=== PATIENT | male | born 1945 | race Caucasian/White ===

== ENCOUNTER 2020-12-07 15:49 | Inpatient (IN) ==
[2020-12-07] MEDS ORDERED: ONDANSETRON INJ 2 MG/ML 2 ML VIAL IV STA (16:23)
[2020-12-07] MEDS ORDERED: SODIUM CHLORIDE 0.9% 1000ML 1,000 ML IV SCH (16:30)
[2020-12-07 16:37] LABS: Appearance Urine Clear (Clear); Bacteria Urine Automated 1+ (Negative); Blood Urine Negative (Negative); Color Urine Orange; Epithelial Cell Urine Auto 0-5 /lpf (0-5); Glucose Urine UA Negative (Negative); Ketones Urine Trace (Negative); Leukocyte Esterase Urine Trace (Negative); Nitrite Urine Positive (Negative); Protein Urine Trace (Negative); RBC Urine Automated 0-4 /hpf (0-4); Specific Gravity Urine 1.021 (1.000-1.030); Urobilinogen Urine Negative (Negative); WBC Urine Automated >30 /hpf (0-5)
[2020-12-07 16:40] LABS: Bilirubin Urine 1+ (Negative)
[2020-12-07 16:43] LABS: INR 1.3 (0.9-1.1); Partial Thromboplastin Time 28.8 Seconds (21.0-31.0); Prothrombin Time 13.4 Seconds (9.0-12.0)
[2020-12-07 16:52] LABS: Alanine Aminotransferase 86 U/L (12-78); Albumin Level 2.5 gm/dl (3.4-5.0); Aspartate Aminotransferase 125 U/L (15-37); BUN Creatinine Ratio 16.1 (10-20); Blood Urea Nitrogen 19 mg/dl (7-18); Calcium 8.6 mg/dl (8.5-10.1); Carbon Dioxide 22 mmol/L (21-32); Chloride 102 mmol/L (98-107); Creatinine Clr Calc Pharmacy 64.9 ml/min; Est GFR (African American) 72.8; Est GFR (Non-African American) 62.8; Glucose 99 mg/dl (70-99); Magnesium 1.6 mg/dl (1.8-2.4); Sodium 135 mmol/L (136-145)
--- NOTE | 2020-12-07 16:56 | XRay Report ---
KUB CLINICAL HISTORY: Diarrhea. FINDINGS: 2 AP, portable, supine abdominal radiographs are obtained. No prior studies are available f or comparison at the time of dictation. There is a nonobstructed abdominal bowel gas pattern. No evid ence of intraperitoneal free air is seen on these supine views. There are no abnormal abdominal calci fications. Surgical clips are seen in the right upper quadrant. The skeletal structures are osteopeni c and appear intact. There is moderate lumbosacral spondylosis. IMPRESSION: Nonobstructed abdominal bowel gas pattern. Electronically signed by: Heron Guzman M.D. 12/07/2020 4:55 PM
--- NOTE | 2020-12-07 16:58 | Emergency Department Note ---
Impression & Plan Diarrhea, Weakness, Urinary tract infection, Hypomagnesemia, Thrombocytopenia, Abnormal ECG ED Provider Note NAME: VIK PARISI AGE: 75 SEX: M : 1945 ARRIVES VIA: Walk-In INFORMANT: Patient, ED PROVIDER(S): Blair Quinonez DO CHIEF COMPLAINT: Diarrhea HPI: The patient is a 75-year-old male who presented to the emergency department for an evaluation of nausea vomiting and diarrhea. The patient states his symptoms began over the course the last week. He does have a history of cancer and is being treated with chemotherapy. He is noticed multiple episodes of nausea vomiting and loose bowel movements over the course of the last few days. He has had a similar episode in the past with a "bowel infection". The patie nt's been trying to drink normally to keep himself well-hydrated but he is unable to keep up with the amount of diarrhea that he has been having. He denies having any fever. He has no cough. He denies having any exposure to COVID-19. The patient denies having any abdominal pain. He does have some cramping. He states the cramping is intermittent. He denies having any black or bloody bowel movements. He said no chest pain or difficulty breathing. He notices no fever. The patient is not been seen recently by his primary care physician for the symptoms. ROS: See above HPI for pertinent positives & negatives. A total of 10 systems reviewed and were otherwise negative. PAST MEDICAL HISTORY: See Below PAST SURGICAL HISTORY: See Below FAMILY HISTORY: See Below SOCIAL HISTORY: See Below HOME MEDICATIONS: See Below ALLERGIES: See Below VITALS: See Below PHYSICAL EXAMINATION: GENERAL: Patient is awake alert in no acute distress patient is resting comfortably and showing no signs of anxiety EYES: The conjunctivae are clear. The pupils are round and reactive. EARS, NOSE, MOUTH AND THROAT: The nose is without any evidence of any deformity. Mucous membranes are dry. NECK: The neck is nontender and supple. RESPIRATORY: Normal respiratory effort is noted there is no evidence of wheezing rhonchi or rales CARDIOVASCULAR: Regular rate and rhythm noted there no murmurs rubs or gallops normal S1 normal S2. GASTROINTESTINAL: The abdomen is soft. Abdomen is nontender. MUSCULOSKELETAL/EXTREMITIES: There is no evidence of gross deformity full range of motion is noted in the hips and shoulders. SKIN: The skin is warm and dry. Trace pedal edema was noted bilaterally. NEUROLOGIC: Patient is awake alert and oriented x 3. MEDICAL DECISION MAKING: The patient is a 75-year-old male who presented to the emergency department for an evaluation of diarrhea and generalized weakness. The patient has a history of hepatocellular carcinoma and is receiving chemotherapy. He presented feeling very dehydrated and weak. I discussed the patient's laboratory and radiographic studies with him. He was treated with IV fluids IV antibiotics for presumed urinary tract infection as well as IV magnesium replacement. I discussed the patient's condition with the [facility] hospitalist. They will evaluate the patient in the emergency department for further management and disposition. Given the patient's overall medical condition I do feel he may warrant inpatient management. He does have a history of pleural effusion. His oxygen saturation is low and I feel this likely is the cause. Triage Nursing notes reviewed. Prior medical records reviewed Vital Signs: reviewed and remarkable for hypoxia. Differential diagnosis: Gastroenteritis, food borne illness, infections, appendicitis, diverticulitis, inflammatory bowel disease, obstruction, GI bleed, biliary pathology, volvulus, as well as other pathologies. ER treatment provided: See below Diagnostics interpreted by me: ECG: EKG was obtained in the emergency department. My interpretation is normal sinus rhythm at 92 bpm. There is no ectopy. Apical and low lateral ST depressions with T wave abnormalities were noted. EKG changes are new compared to an EKG tracing from April 162019 which was obtained from the [employer] system. Cardiac Monitoring: An order was placed for continuous cardiac monitoring. The monitor shows a rate of 89 bpm with sinus rhythm. Laboratory studies: As stated above and show below. Imaging studies: See below Consultation(s): I discussed this case with Dr. Kamara who is on-call for [facility]. He will evaluate the patient in the emergency department for further management and disposition. Past Med/Surg History Medical History Hepatitis C Hepatocellular carcinoma Pleural effusion, right Social History Feels Safe at Home: Yes Home Meds Home Medications Medication Instructions Recorded Confirmed amlodipine 5 mg PO DIRECTED 12/07/20 12/07/20 cabozantinib [Cabometyx] 60 mg PO DIRECTED 12/07/20 12/07/20 diclofenac sodium 1 ea TOPICAL DIRECTED 12/07/20 12/07/20 hydroxyzine HCl 10 mg PO DIRECTED 12/07/20 12/07/20 ondansetron 8 mg PO DIRECTED 12/07/20 12/07/20 tamsulosin 0.4 mg PO DIRECTED 12/07/20 12/07/20 Results & Data (ED) Vital Signs Vital Signs - 24 hr 12/07/20 15:55 12/07/20 16:17 12/07/20 16:26 Temperature 36.8 C Temperature Source Oral Pulse Rate 112 H 103 H Pulse Rate from SpO2 Sensor 104 H Respiratory Rate 20 24 Respiratory Effort / Characteristics Non-Labored Respiratory Depth Normal Respiratory Pattern Regular Blood Pressure 113/78 132/90 Blood Pressure Mean 89 104 Blood Pressure Position Sitting Pulse Oximetry 93 93 98 Oxygen Delivery Method Room Air Room Air Room Air Sepsis Recent Fever Within 48 Hours No Sepsis New/Unexplained Change in Mental Status No Sepsis Action Taken by Nursing No Action Required 12/07/20 16:30 12/07/20 17:00 12/07/20 17:30 Temperature Temperature Source Pulse Rate 98 H 84 90 Pulse Rate from SpO2 Sensor 98 H 84 90 Respiratory Rate 19 16 17 Respiratory Effort / Characteristics Respiratory Depth Respiratory Pattern Blood Pressure 109/74 130/76 147/75 H Blood Pressure Mean 85 94 99 Blood Pressure Position Pulse Oximetry 93 92 91 Oxygen Delivery Method Room Air Room Air Sepsis Recent Fever Within 48 Hours Sepsis New/Unexplained Change in Mental Status Sepsis Action Taken by Nursing 12/07/20 17:31 12/07/20 18:00 12/07/20 18:01 Temperature Temperature Source Pulse Rate 89 81 83 Pulse Rate from SpO2 Sensor 89 81 82 Respiratory Rate 16 13 12 Respiratory Effort / Characteristics Respiratory Depth Respiratory Pattern Blood Pressure 138/74 Blood Pressure Mean 95 Blood Pressure Position Pulse Oximetry 91 90 Oxygen Delivery Method Sepsis Recent Fever Within 48 Hours Sepsis New/Unexplained Change in Mental Status Sepsis Action Taken by Nursing 12/07/20 18:30 12/07/20 18:31 12/07/20 19:00 Temperature Temperature Source Pulse Rate 95 H 95 H 87 Pulse Rate from SpO2 Sensor 96 H 95 H 87 Respiratory Rate 18 22 15 Respiratory Effort / Characteristics Respiratory Depth Respiratory Pattern Blood Pressure 140/92 136/80 Blood Pressure Mean 108 98 Blood Pressure Position Pulse Oximetry 93 93 90 Oxygen Delivery Method Sepsis Recent Fever Within 48 Hours Sepsis New/Unexplained Change in Mental Status Sepsis Action Taken by Nursing 12/07/20 19:01 Temperature Temperature Source Pulse Rate 87 Pulse Rate from SpO2 Sensor 87 Respiratory Rate 15 Respiratory Effort / Characteristics Respiratory Depth Respiratory Pattern Blood Pressure Blood Pressure Mean Blood Pressure Position Pulse Oximetry 91 Oxygen Delivery Method Sepsis Recent Fever Within 48 Hours Sepsis New/Unexplained Change in Mental Status Sepsis Action Taken by [facility] Medications Current Medication List: was personally reviewed by me Laboratory Data Attestation: I reviewed the patient's lab results. Result diagrams: 12/07/20 16:20 12/07/20 16:20 Lab Results 12/07/20 12/07/20 12/07/20 Range/Units 16:10 16:20 16:20 WBC 3.81 L (4.8-10.8) K/uL RBC 5.29 (4.7-6.1) M/uL Hgb 16.7 (14.0-18.0) g/dL Hct 46.5 (42-52) % MCV 87.9 (80-100) fL MCH 31.6 (25-34) pg MCHC 35.9 (32-36) g/dL RDW Std Deviation 57.8 H (36.4-46.3) fL RDW Coeff of Juan C 18.5 H (11.5-14.5) % Plt Count 68 L (130-400) K/uL MPV 10.7 H (7.4-10.4) fL Immature Gran % (Auto) 0.3 % Neut % (Auto) 46.2 % Lymph % (Auto) 33.9 % [place] % (Auto) 14.4 % Eos % (Auto) 4.7 % Baso % (Auto) 0.5 % Neut # (Auto) 1.76 (1.4-6.5) K/uL Lymph # (Auto) 1.29 (1.2-3.4) K/uL [place] # (Auto) 0.55 (0.11-0.59) K/uL Eos # (Auto) 0.18 (0-0.5) K/uL Baso # (Auto) 0.02 (0-0.2) K/uL Immature Gran # (Auto) 0.01 (0.00-0.02) K/uL Platelet Estimate Decreased L (Normal) PT 13.4 H (9.0-12.0) Seconds INR 1.3 H (0.9-1.1) APTT 28.8 (21.0-31.0) Seconds PTT Ratio 1.0 Sodium (136-145) mmol/L Potassium (3.5-5.1) mmol/L Chloride (98-107) mmol/L Carbon Dioxide (21-32) mmol/L Anion Gap (3-11) BUN (7-18) mg/dl Creatinine (0.6-1.4) mg/dl Est Cr Clr Drug Dosing ml/min Est GFR ( Amer) Est GFR (Non-Af Amer) BUN/Creatinine Ratio (10-20) Glucose (70-99) mg/dl Calcium (8.5-10.1) mg/dl Magnesium (1.8-2.4) mg/dl Total Bilirubin (0.2-1) mg/dl AST (15-37) U/L ALT (12-78) U/L Alkaline Phosphatase (45-117) U/L Troponin I (0-0.045) ng/ml Total Protein (6.4-8.2) gm/dl Albumin (3.4-5.0) gm/dl Globulin (2.5-4.0) gm/dl Albumin/Globulin Ratio (0.9-2) TSH (0.300-4.500) uIu/ml Free T4 (0.8-1.6) ng/dl Urine Color [place] Urine Appearance Clear (Clear) Urine pH 5.0 (4.5-7.5) Ur Specific [place] 1.021 (1.000-1.030) Urine Protein Trace H (Negative) Urine Glucose (UA) Negative (Negative) Urine Ketones Trace H (Negative) Urine Blood Negative (Negative) Urine Nitrite Positive A (Negative) Urine Bilirubin 1+ H (Negative) Urine Urobilinogen Negative (Negative) Ur Leukocyte Esterase Trace H (Negative) Urine WBC (Auto) >30 H (0-5) /hpf Urine RBC (Auto) 0-4 (0-4) /hpf U Hyaline Cast (Auto) 10-30 H (0-5) /lpf U Epithel Cells (Auto) 0-5 (0-5) /lpf Urine Bacteria (Auto) 1+ H (Negative) Urine Yeast Not Reportable COVID-19 Eval Order SARS-CoV-2 (PCR) (Negative) Influenza Type A (PCR) (Neg) Influenza Type B (PCR) (Neg) RSV (RT-PCR) (Neg) 12/07/20 12/07/20 12/07/20 Range/Units 16:20 18:32 18:32 WBC (4.8-10.8) K/uL RBC (4.7-6.1) M/uL Hgb (14.0-18.0) g/dL Hct (42-52) % MCV (80-100) fL MCH (25-34) pg MCHC (32-36) g/dL RDW Std Deviation (36.4-46.3) fL RDW Coeff of Juan C (11.5-14.5) % Plt Count (130-400) K/uL MPV (7.4-10.4) fL Immature Gran % (Auto) % Neut % (Auto) % Lymph % (Auto) % [place] % (Auto) % Eos % (Auto) % Baso % (Auto) % Neut # (Auto) (1.4-6.5) K/uL Lymph # (Auto) (1.2-3.4) K/uL [place] # (Auto) (0.11-0.59) K/uL Eos # (Auto) (0-0.5) K/uL Baso # (Auto) (0-0.2) K/uL Immature Gran # (Auto) (0.00-0.02) K/uL Platelet Estimate (Normal) PT (9.0-12.0) Seconds INR (0.9-1.1) APTT (21.0-31.0) Seconds PTT Ratio Sodium 135 L (136-145) mmol/L Potassium 4.0 (3.5-5.1) mmol/L Chloride 102 (98-107) mmol/L Carbon Dioxide 22 (21-32) mmol/L Anion Gap 10.0 (3-11) BUN 19 H (7-18) mg/dl Creatinine 1.15 (0.6-1.4) mg/dl Est Cr Clr Drug Dosing 64.9 ml/min Est GFR ( Amer) 72.8 Est GFR (Non-Af Amer) 62.8 BUN/Creatinine Ratio 16.1 (10-20) Glucose 99 (70-99) mg/dl Calcium 8.6 (8.5-10.1) mg/dl Magnesium 1.6 L (1.8-2.4) mg/dl Total Bilirubin 2.6 H (0.2-1) mg/dl AST 125 H (15-37) U/L ALT 86 H (12-78) U/L Alkaline Phosphatase 125 H (45-117) U/L Troponin I < 0.015 (0-0.045) ng/ml Total Protein 6.5 (6.4-8.2) gm/dl Albumin 2.5 L (3.4-5.0) gm/dl Globulin 4.0 (2.5-4.0) gm/dl Albumin/Globulin Ratio 0.6 L (0.9-2) TSH 0.057 L (0.300-4.500) uIu/ml Free T4 5.71 H (0.8-1.6) ng/dl Urine Color Urine Appearance (Clear) Urine pH (4.5-7.5) Ur Specific [place] (1.000-1.030) Urine Protein (Negative) Urine Glucose (UA) (Negative) Urine Ketones (Negative) Urine Blood (Negative) Urine Nitrite (Negative) Urine Bilirubin (Negative) Urine Urobilinogen (Negative) Ur Leukocyte Esterase (Negative) Urine WBC (Auto) (0-5) /hpf Urine RBC (Auto) (0-4) /hpf U Hyaline Cast (Auto) (0-5) /lpf U Epithel Cells (Auto) (0-5) /lpf Urine Bacteria (Auto) (Negative) Urine Yeast COVID-19 Eval Order [facility]Rsv at [facility] SARS-CoV-2 (PCR) NEGATIVE (Negative) Influenza Type A (PCR) Negative (Neg) Influenza Type B (PCR) Negative (Neg) RSV (RT-PCR) Negative (Neg) Administered Medications Discontinued Medications Sodium Chloride (Nss 1000ml) 1,000 mls @ 999 mls/hr IV .Q1H1M MARCE Stop: 12/07/20 17:30 Last Infusion: 12/07/20 17:39 Dose: 0 mls/hr Documented by: [id number] Admin: 12/07/20 16:28 Dose: 999 mls/hr Documented by: [id number] Magnesium Sulfate/Dextrose (Magnesium Sulfate / D5w) 1 gm in 100 mls @ 100 mls/hr IV Q1H MARCE Stop: 12/07/20 19:53 Last Admin: 12/07/20 19:25 Dose: 100 mls/hr Documented by: [id number] Infusion: 12/07/20 19:25 Dose: 100 mls/hr Documented by: [id number] Admin: 12/07/20 18:26 Dose: 100 mls/hr Documented by: [id number] Ceftriaxone Sodium (Rocephin) 1,000 mg in 50 mls @ 100 mls/hr IV NOW STA Stop: 12/07/20 18:23 Last Infusion: 12/07/20 19:32 Dose: 0 mls/hr Documented by: [id number] Admin: 12/07/20 18:26 Dose: 100 mls/hr Documented by: [id number] Ondansetron HCl (Ondansetron Inj 2 Mg/Ml 2 Ml Vial) 4 mg IV NOW STA Stop: 12/07/20 16:24 Last Admin: 12/07/20 16:35 Dose: 4 mg Documented by: [id number] Imaging Data Radiologist's Impression: Patient: VIK PARISI Admit Date: 12/07/20 MR#: [id number] Address1: [address] [place] [address] Acct ID:[id number] Address2: Date: 1945 [facility] Zip: [place] [address] Age: 75 Location: ED Sex: M Room/Bed: Att Phy: Diagnosis: VOMITING, DIARRHEA, DEHYDRATED, LIVER CANCER Mile Phy: PCP,NO Service Date: 12/07/20 [facility] Phy: Interpreting Phy: Heron Guzman MD Admit Phy: Ordering Phy: Blair Quinonez DO cc: ~ KYLE CLINICAL HISTORY: Diarrhea. FINDINGS: 2 AP, portable, supine abdominal radiographs are obtained. No prior studies are available for comparison at the time of dictation. There is a nonobstructed abdominal bowel gas pattern. No evidence of intraperitoneal free air is seen on these supine views. There are no abnormal abdominal calcifications. Surgical clips are seen in the right upper quadrant. The skeleta l structures are osteopenic and appear intact. There is moderate lumbosacral spondylosis. IMPRESSION: Nonobstructed abdominal bowel gas pattern. Electronically signed by: Heron Guzman M.D. 12/07/2020 4:55 PM Dictated: 12/07/201653 Transcribed: 12/07/201653 Patient: VIK PARISI Admit Date: 12/07/20 MR#: [id number] Address1: [place] [facility] Acct ID:[id number] Address2: Date: 1945 [facility] Zip: [place] [address] Age: 75 Location: ED Sex: M Room/Bed: Att Phy: Diagnosis: VOMITING, DIARRHEA, DEHYDRATED, LIVER CANCER Mile Phy: PCP,NO Service Date: 12/07/20 Fam Phy: Interpreting Phy: Heron Guzman MD Admit Phy: Ordering Phy: Blair Quinonez DO cc: ~ SINGLE VIEW CHEST CLINICAL HISTORY: Generalized weakness. Diarrhea. FINDINGS: An AP, portable, upright chest radiograph is obtained. No prior studies are available for comparison at the time of dictation. The cardiomediastinal silhouette is unremarkable. There is elevation of the right hemidiaphragm with right basilar consolidation and associated right-sided pleural effusion. The left lung appears clear. No pneumothorax is seen. The skeletal structures are osteopenic. There are healed left-sided rib fractures. IMPRESSION: 1. There is elevation of the right hemidiaphragm with right basilar consolidation and a right pleural effusion. Correlate clinically for pneumonia. 2. The left lung appears clear. ACT 112: Negative or not required by law. Electronically signed by: Heron Guzman M.D. 12/07/2020 4:57 PM Dictated: 12/07/201654 Transcribed: 12/07/201654 Blood Pressure Blood Pressure Findings: Normal blood pressure Discharge Plan Visit Data Chief Complaint: Illness Stated Complaint: VOMITING, DIARRHEA, DEHYDRATED, LIVER CANCER ED Provider: Blair Quinonez Discharge Problem: Diarrhea, Weakness, Urinary tract infection, Hypomagnesemia, Thrombocytopenia, Abnormal ECG Patient Disposition: Being Evaluated by Hospitalist Condition: Good Forms Stand Alone Forms: My [facility] Prescriptions Prescriptions: No Action amlodipine 5 mg tablet 5 mg PO DIRECTED RF: 0 ondansetron 8 mg tablet,disintegrating 8 mg PO DIRECTED RF: 0 tamsulosin 0.4 mg capsule 0.4 mg PO DIRECTED RF: 0 hydroxyzine HCl 10 mg tablet 10 mg PO DIRECTED RF: 0 diclofenac sodium 1 % gel 1 ea TOPICAL DIRECTED RF: 0 Cabometyx 60 mg tablet 60 mg PO DIRECTED RF: 0 Referrals Referrals: PCP,NO [Primary Care Provider] - Discharge Problem: Diarrhea Qualifiers: Diarrhea type: unspecified type Qualified Code(s): R19.7 - Diarrhea, unspecified Urinary tract infection Qualifiers: Urinary tract infection type: site unspecified Hematuria presence: without hematuria Qualified Code(s): N39.0 - Urinary tract infection, site not specified
--- NOTE | 2020-12-07 16:58 | XRay Report ---
SINGLE VIEW CHEST CLINICAL HISTORY: Generalized weakness. Diarrhea. FINDINGS: An AP, portable, upright chest radiograph is obtained. No prior studies are available for c omparison at the time of dictation. The cardiomediastinal silhouette is unremarkable. There is eleva tion of the right hemidiaphragm with right basilar consolidation and associated right-sided pleural e ffusion. The left lung appears clear. No pneumothorax is seen. The skeletal structures are osteopenic . There are healed left-sided rib fractures. IMPRESSION: 1. There is elevation of the right hemidiaphragm with right basilar consolidation and a right pleural effusion. Correlate clinically for pneumonia. 2. The left lung appears clear. ACT 112: Negative or not required by law. Electronically signed by: Heron Guzman M.D. 12/07/2020 4:57 PM
[2020-12-07 17:03] LABS: Albumin Globulin Ratio 0.6 (0.9-2); Alkaline Phosphatase 125 U/L (45-117); Bilirubin,Total 2.6 mg/dl (0.2-1); Thyroid Stimulating Hormone 0.057 uIu/ml (0.300-4.500); Total Protein 6.5 gm/dl (6.4-8.2); Troponin I < 0.015 ng/ml (0-0.045)
[2020-12-07 17:15] LABS: Hematocrit (blood only) 46.5 % (42-52); Hemoglobin 16.7 g/dL (14.0-18.0); Mean Corpuscular Hemoglobin 31.6 pg (25-34); Mean Corpuscular Hgb Conc 35.9 g/dL (32-36); Mean Corpuscular Volume 87.9 fL (80-100); Mean Platelet Volume 10.7 fL (7.4-10.4); Platelet Count 68 K/uL (130-400); RDW Coefficient of Variation 18.5 % (11.5-14.5); RDW Standard Deviation 57.8 fL (36.4-46.3); Red Blood Count 5.29 M/uL (4.7-6.1); T4 Free Thyroxine 5.71 ng/dl (0.8-1.6); White Blood Count 3.81 K/uL (4.8-10.8)
[2020-12-07 17:17] LABS: Basophils # (auto) 0.02 K/uL (0-0.2); Basophils % (auto) 0.5 %; Eosinophils # (auto) 0.18 K/uL (0-0.5); Eosinophils % (auto) 4.7 %; Immature Granulocytes # (auto) 0.01 K/uL (0.00-0.02); Immature Granulocytes % (auto) 0.3 %; Lymphocytes # (auto) 1.29 K/uL (1.2-3.4); Lymphocytes % (auto) 33.9 %; Monocytes # (auto) 0.55 K/uL (0.11-0.59); Monocytes % (auto) 14.4 %; Neutrophils # (auto) 1.76 K/uL (1.4-6.5); Neutrophils % (auto) 46.2 %; Platelet Estimate Decreased (Normal)
[2020-12-07] MEDS ORDERED: cefTRIAXone SODIUM 1,000 MG/50 ML BAG IV STA (17:54)
[2020-12-07] MEDS: MAGNESIUM SULFATE / D5W 1 GM/100 ML BAG IV SCH ×2 (18:26→19:25)
[2020-12-07 19:18] LABS: Influenza A virus by PCR Negative (Neg); Influenza B virus by PCR Negative (Neg); RSV by PCR Negative (Neg); SARS CoV2 RNA(COVID-19) InHosp NEGATIVE (Negative)
--- NOTE | 2020-12-08 00:45 | History and Physical Report ---
DATE OF ADMISSION: 12/07/2020 CHIEF COMPLAINT: Ongoing diarrhea and illness. 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 Currently, moved to [place] and living with his daughter. He presents with ongoing diarrhea for about 9 days, more than 3 episodes a day. Denies any blood in the stools or black stools. Some nausea, but no vomiting. Appetite is down. Denies any fever, chills. Urine is dark. No blood in the urine. Denies any chest pain, shortness of breath on exertion. Ambulates without any support. Has no headache, no blurred visions, no earache, no runny nose, no sore throat, no loss of sense of smell or taste, no dysphagia. Currently resting comfortably and hemodynamically stable. ALLERGIES: PENICILLIN. PAST MEDICAL HISTORY: As mentioned above. PAST SURGICAL HISTORY: EGD with biopsies, lumbar laminectomy, partial removal of the liver lobe, appendectomy. MEDICATIONS: The patient is on amlodipine 5 mg p.o. daily, Cabometyx 60 mg as directed, diclofenac sodium topical as directed, hydroxyzine 10 mg p.o. p.r.n., Zofran 8 mg p.o. p.r.n., Flomax 0.4 mg p.o. daily. FAMILY HISTORY: Significant for sister has breast cancer, son has degenerative disc disease. SOCIAL HISTORY: , currently lives with daughter. Former smoker. Alcohol, 2-3 beers every other day. No drug use. REVIEW OF SYSTEMS: As per HPI. Rest of the review of systems negative. PHYSICAL EXAMINATION: GENERAL: The patient is of moderate build, not in acute distress. VITAL SIGNS: Temperature 36.8, pulse 88, respiratory rate 15, blood pressure 135/87, oxygen 96% on 2 liters. HEENT: Pupils equal, round, and reactive to light. Oral mucosa moist. NECK: No JVD, no neck masses. CARDIOVASCULAR: S1, S2 heard. Regular rate and rhythm. No murmur, no gallop. RESPIRATORY SYSTEM: Normal AP diameter. No accessory muscle use. No wheezing, no crackles. ABDOMEN: Soft, bowel sounds present, nontender. No distention. CENTRAL NERVOUS SYSTEM: Cranial nerves II-XII grossly intact, nonfocal. EXTREMITIES: No edema, no erythema. LABORATORY DATA: WBC 3.8, hemoglobin 16.7, hematocrit 46.5, platelets 68. PT 13.4, INR 1.3, APTT 28.8. Sodium 135, potassium 4, chloride 102, bicarbonate 22, BUN 19, creatinine 1.1, serum glucose 99, calcium 8.6, magnesium 1.6, total bilirubin 2.6, AST 125, ALT 86, alkaline phosphatase 125. Troponin I less than 0.015. TSH 0.057. Free T4 of 5.7. Urinalysis positive for nitrite, leukocyte esterase, +1 bacteria. SARS-CoV-2 negative. Influenza A and B negative. RSV negative. IMAGING DATA: KUB x-ray, nonobstructive abdominal bowel gas pattern. Chest x-ray, elevation of the right hemidiaphragm with right basilar consolidation and right pleural effusion. The left lung is clear. ASSESSMENT AND PLAN: This is a 75-year-old male who presents with ongoing diarrhea for several days and feeling weakness. 1. Diarrhea. KUB x-ray is okay. The patient has hepatocellular carcinoma. The patient says he is on chemo for his hepatocellular carcinoma with Cabometyx for last 3-4 months.Will follow the stool for Clostridium difficile and stool cultures. Keep on clear liquid diet for now. 2. Urinary tract infection, could be contributing to his symptoms. Empirically start on Rocephin and follow the cultures. 3. Hepatocellular carcinoma, status post surgery and currently on chemo. We will hold the chemo. Follows with [facility]. 4. History of hepatitis C, history of liver cirrhosis, status post treatment. Currently with thrombocytopenia and leukopenia, most likely from liver cirrhosis. We will follow the labs. 5. Hypertension: On amlodipine for the blood pressure. 6. Hypomagnesia. replaced by er. follow labs. 7. Deep venous thrombosis prophylaxis. We will place him on sequential compression devices as the patient has thrombocytopenia. DISPOSITION: Closely monitor in the medical floor. PT and OT prior to discharge. Social service to help with discharge planning. [facility]
[2020-12-08] MEDS ORDERED: ACETAMINOPHEN 325 MG TAB PO PRN (02:02)
[2020-12-08] MEDS: D5W AND NSS 1,000 ML IV SCH ×2 (02:58→16:22)
[2020-12-08 06:00] LABS: Hematocrit (blood only) 39.8 % (42-52); Mean Corpuscular Hgb Conc 35.2 g/dL (32-36); Mean Corpuscular Volume 88.2 fL (80-100); RDW Coefficient of Variation 18.7 % (11.5-14.5); RDW Standard Deviation 59.1 fL (36.4-46.3); Red Blood Count 4.51 M/uL (4.7-6.1)
[2020-12-08 06:07] LABS: Mean Platelet Volume 10.2 fL (7.4-10.4); Platelet Count 45 K/uL (130-400)
[2020-12-08 06:33] LABS: Albumin Level 2.1 gm/dl (3.4-5.0); BUN Creatinine Ratio 20.8 (10-20); Bilirubin Direct 0.9 mg/dl (0-0.2); Calcium 7.7 mg/dl (8.5-10.1); Est GFR (African American) 97.9; Est GFR (Non-African American) 84.4; Magnesium 2.3 mg/dl (1.8-2.4); Potassium 4.1 mmol/L (3.5-5.1)
[2020-12-08 06:34] LABS: Basophils # (auto) 0.01 K/uL (0-0.2); Basophils % (auto) 0.5 %; Eosinophils # (auto) 0.15 K/uL (0-0.5); Eosinophils % (auto) 7.5 %; Lymphocytes # (auto) 0.51 K/uL (1.2-3.4); Lymphocytes % (auto) 25.5 %; Neutrophils # (auto) 1.03 K/uL (1.4-6.5); Neutrophils % (auto) 51.5 %
[2020-12-08 06:48] LABS: Bilirubin,Total 1.9 mg/dl (0.2-1); Thyroid Stimulating Hormone 0.039 uIu/ml (0.300-4.500); Total Protein 5.4 gm/dl (6.4-8.2)
--- NOTE | 2020-12-08 07:07 | Hospitalist Progress Note ---
Date of Service December 08, 2020 Assessment & Plan Admission and Anticipated Discharge Date Admission Date: December 07, 2020 Subjective Addendum: Tsh is low and free t4 high. repeat labs, Can start on methimazole. Can consult endocrinolgy. Results & Data Results & Data ([facility]) Vital Signs (Past 12 Hours) Vital Signs Temp Pulse Pulse Resp BP BP Pulse Ox 12/08/20 00:43 36.4 C L 104 H 16 167/83 H 91 12/08/20 00:00 82 23 147/82 H 96 12/07/20 23:30 91 H 22 155/89 H 96 12/07/20 23:00 88 17 135/87 96 12/07/20 22:01 85 13 96 12/07/20 22:00 84 15 166/97 H 96 12/07/20 21:31 87 18 12/07/20 21:30 85 15 146/88 H 12/07/20 21:01 85 15 90 12/07/20 21:00 84 16 151/88 H 92 12/07/20 20:31 83 14 92 12/07/20 20:30 82 16 143/88 H 93 12/07/20 20:01 82 13 12/07/20 20:00 83 12 150/84 H 12/07/20 19:31 84 16 92 12/07/20 19:30 83 14 148/90 H
[2020-12-08] MEDS: amLODIPine BESYLATE 5 MG TAB PO SCH (07:41)
[2020-12-08] MEDS ORDERED: DICLOFENAC SOD 1% GEL 100 GM TUBE EXT PRN (09:00)
[2020-12-08] MEDS: ONDANSETRON INJ 2 MG/ML 2 ML VIAL IV PRN ×2 (09:01→16:22)
--- NOTE | 2020-12-08 11:21 | Electrocardiogram Report ---
Test Reason : Blood Pressure : / mmHG Vent. Rate : 092 BPM Atrial Rate : 092 BPM P-R Int : 162 ms QRS Dur : 086 ms QT Int : 354 ms P-R-T Axes : 011 014 -06 degrees QTc Int : 437 ms Normal sinus rhythm Nonspecific ST and T wave abnormality Abnormal ECG No previous ECGs available Confirmed by Chay Conrad ([id number]) on 12/08/2020 11:21:27 AM Referred By: REFERRED SELF Confirmed By:Bob Conrad
[2020-12-08] MEDS: methIMAzole 5 MG TABLET PO SCH (11:35)
[2020-12-08] MEDS ORDERED: HYDROmorphone INJ 0.5 MG/0.5 ML SYR ONE (12:41)
[2020-12-08] MEDS ORDERED: HYDROmorphone INJ 0.5 MG/0.5 ML SYR IV STA (12:44)
--- NOTE | 2020-12-08 14:35 | Hospitalist Progress Note ---
Date of Service December 08, 2020 Assessment & Plan (1) Diarrhea: Has been complaining of diarrhea about 3-4 loose stools per day for the last 9 days Denies any abdominal pain but has epigastric discomfort with nausea but no vomiting Stool for C. difficile is negative Urine culture has been sent Could be secondary to gastroenteritis/side effects of chemotherapy Will try Imodium when infection has been ruled out May need GI evaluation if the diarrhea does not improve Will monitor electrolytes (2) Weakness: Has been ongoing (3) Urinary tract infection: UA suggestive of infection Started on intravenous ceftriaxone (4) Hepatocellular carcinoma: History of hepatocellular carcinoma diagnosed in 2016 status post partial hepatic excision in 2015 and followed by recurrence in February 2019 Was on Nexavar and Opdivo before and now has been on Cabometyx Has an appointment with oncologist at [facility] (5) Hepatitis C: History of hepatitis C (6) Hyperthyroidism: Noted to have hypothyroidism during this admission No thyromegaly Does not have any palpitation but has borderline tachycardia and the diarrhea could be secondary to hyperthyroidism TSH of 0.039, free T4 5.71 and free T3 is 8.13 Discussed with on-call manager integration in [place] and suggested to restart methimazole at 2.5 mg daily and monitor CBC (7) Thrombocytopenia: Secondary to hepatic carcinoma and also of cirrhosis Will monitor DVT prophylaxis SCDs due to thrombocytopenia CODE STATUS Full Admission and Anticipated Discharge Date Admission Date: December 07, 2020 Subjective 12/08/2020 The patient was seen and examined in medical telemetry unit 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 apparently has been complaining of diarrhea for the last 9 days with epigastric discomfort and nausea without vomiting She still has nausea as of this morning but denies any significant pain No fever and/or chills He is generally weak Review of Systems Review of Systems: All systems reviewed and are unremarkable except as noted below Gastrointestinal: + nausea and + diarrhea/loose stools; no bloating and no vomiting Neurologic: + generalized weakness Physical Exam Physical Exam: Lying in bed comfortably Constitutional: well developed, well nourished and + ill appearing; no acute distress Eyes: PERRL, conjunctivae normal, anicteric sclerae ENMT: external ear and nose normal, oropharynx normal Neck: trachea midline, no thyromegaly Respiratory: normal respiratory effort; no respiratory distress Auscultation: lungs clear to auscultation bilaterally Cardiovascular: Rate/Rhythm: regular rate and regular rhythm Heart Sounds: no murmur Extremities: no edema Gastrointestinal (Abdomen): Inspection/Auscultation: normal bowel sounds; abdomen not distended Percussion/Palpation: abdomen soft; abdomen nontender and no guarding Musculoskeletal: No acute arthritis in any joint Neurologic: Alert, awake and oriented x3. Generally weak but no focal sensory and motor deficit appreciated Psychiatric: A+Ox3, euthymic affect Lymphatic: no cervical or axillary lymphadenopathy Results & Data Results & Data ([facility]) Vital Signs (Past 12 Hours) Vital Signs Temp Pulse Resp BP Pulse Ox 12/08/20 11:12 36.4 C L 100 H 20 147/73 H 91 12/08/20 08:25 36.3 C L 104 H 20 138/86 91 Laboratory Results Short CBC 12/07/20 12/08/20 Range/Units 16:20 05:28 WBC 3.81 L 2.00 L (4.8-10.8) K/uL Hgb 16.7 14.0 (14.0-18.0) g/dL Hct 46.5 39.8 L (42-52) % Plt Count 68 L 45 L (130-400) K/uL BMP 12/07/20 12/08/20 16:20 05:28 Sodium 135 L 136 Potassium 4.0 4.1 Chloride 102 103 Carbon Dioxide 22 28 BUN 19 H 19 H Creatinine 1.15 0.90 Glucose 99 110 H Calcium 8.6 7.7 L Cardiac Enzymes 12/07/20 Range/Units 16:20 Troponin I < 0.015 (0-0.045) ng/ml Liver Function 12/07/20 12/08/20 Range/Units 16:20 05:28 Total Bilirubin 2.6 H 1.9 H (0.2-1) mg/dl Direct Bilirubin 0.9 H (0-0.2) mg/dl AST 125 H 95 H (15-37) U/L ALT 86 H 66 (12-78) U/L Alkaline Phosphatase 125 H 101 (45-117) U/L Albumin 2.5 L 2.1 L (3.4-5.0) gm/dl Urine 12/07/20 Range/Units 16:10 Urine Color [place] Urine Appearance Clear (Clear) Urine pH 5.0 (4.5-7.5) Ur Specific [place] 1.021 (1.000-1.030) Urine Protein Trace H (Negative) Urine Glucose (UA) Negative (Negative) Medications Administered Current Inpatient Medications Acetaminophen (Acetaminophen 325 Mg Tab) 650 mg PO Q4H PRN PRN Reason: pain/fever Stop: 01/07/21 02:01 Amlodipine Besylate (Amlodipine Besylate 5 Mg Tab) 5 mg PO DAILY [facility] Stop: 01/07/21 08:59 Last Admin: 12/08/20 07:41 Dose: 5 mg Documented by: Diclofenac Sodium (Diclofenac Sod 1% Gel 100 Gm Tube) 1 gm EXT QID PRN PRN Reason: Pain Stop: 01/07/21 08:59 Dextrose/Sodium Chloride (D5w And Nss) 1,000 mls @ 75 mls/hr IV .[id number] [facility] Stop: 01/07/21 02:01 Last Admin: 12/08/20 02:58 Dose: 75 mls/hr Documented by: Ceftriaxone Sodium 2,000 mg/ (Dextrose) 70 mls @ 100 mls/hr IV Q24H [facility]; Protocol Stop: 12/11/20 16:41 Promethazine HCl 12.5 mg/ (Sodium Chloride) 50.5 mls @ 202 mls/hr IV Q6H PRN PRN Reason: Nausea And Vomiting Stop: 01/07/21 13:57 Methimazole (Methimazole 5 Mg Tablet) 2.5 mg PO DAILY [facility] Stop: 01/07/21 11:14 Last Admin: 12/08/20 11:35 Dose: 2.5 mg Documented by: Ondansetron HCl (Ondansetron Inj 2 Mg/Ml 2 Ml Vial) 4 mg IV Q6H PRN PRN Reason: Nausea Stop: 01/07/21 02:01 Last Admin: 12/08/20 09:01 Dose: 4 mg Documented by: Oxycodone HCl (Oxycodone Hcl Soln 5 Mg/5 Ml Udc) 10 mg PO Q6H PRN PRN Reason: Pain Stop: 12/22/20 13:57 (1) Diarrhea Diarrhea type: unspecified type Qualified Code(s): R19.7 - Diarrhea, unspecified (2) Urinary tract infection Hematuria presence: without hematuria Urinary tract infection type: site unspecified Qualified Code(s): N39.0 - Urinary tract infection, site not specified
[2020-12-08] MEDS ORDERED: cefTRIAXone SODIUM 2,000 MG in DEXTROSE 5% 50 ML IV SCH (16:00)
[2020-12-08] MEDS: oxyCODONE HCL SOLN 5 MG/5 ML UDC PO PRN ×2 (16:22→23:34)
[2020-12-08] MEDS: PROMETHAZINE HCL 12.5 MG in SODIUM CHLORIDE 0.9% 50 ML IV PRN (17:58)
[2020-12-09] MEDS: D5W AND NSS 1,000 ML IV SCH ×2 (04:31→18:10)
[2020-12-09 06:29] LABS: Hemoglobin 13.8 g/dL (14.0-18.0); Mean Corpuscular Hemoglobin 30.7 pg (25-34); Mean Corpuscular Hgb Conc 34.5 g/dL (32-36); Mean Corpuscular Volume 89.1 fL (80-100); Red Blood Count 4.49 M/uL (4.7-6.1); White Blood Count 2.14 K/uL (4.8-10.8)
[2020-12-09 06:33] LABS: Mean Platelet Volume 10.8 fL (7.4-10.4); Platelet Count 43 K/uL (130-400)
[2020-12-09 07:00] LABS: Albumin Level 2.1 gm/dl (3.4-5.0); Creatinine Clr Calc Pharmacy 86.8 ml/min; Est GFR (African American) 99.7; Potassium 3.5 mmol/L (3.5-5.1)
[2020-12-09 07:03] LABS: Albumin Globulin Ratio 0.6 (0.9-2); Bilirubin,Total 1.4 mg/dl (0.2-1); Globulin 3.5 gm/dl (2.5-4.0); Phosphorus 2.4 mg/dl (2.5-4.9); Total Protein 5.6 gm/dl (6.4-8.2)
[2020-12-09 07:17] LABS: Basophils # (auto) 0.01 K/uL (0-0.2); Basophils % (auto) 0.5 %; Eosinophils # (auto) 0.22 K/uL (0-0.5); Eosinophils % (auto) 10.3 %; Giant Platelets 1+; Lymphocytes # (auto) 0.68 K/uL (1.2-3.4); Lymphocytes % (auto) 31.8 %; Monocytes # (auto) 0.35 K/uL (0.11-0.59); Monocytes % (auto) 16.4 %; Neutrophils # (auto) 0.88 K/uL (1.4-6.5)
[2020-12-09] MEDS: methIMAzole 5 MG TABLET PO SCH (08:05)
[2020-12-09] MEDS: amLODIPine BESYLATE 5 MG TAB PO SCH (08:05)
[2020-12-09] MEDS ORDERED: oxyCODONE HCL IR 5 MG TAB (IMMEDIATE RELEASE) ONE (08:56)
--- NOTE | 2020-12-09 09:14 | Gastrointestinal Consultation ---
Date of Consultation December 09, 2020 Assessment & Plan (1) Diarrhea: This is a 75 y/o male with h/o Hep C, cirrhosis, with HCC, on chemotherapy with Cabozantinib, with nausea, intermittent vomiting, diarrhea; Pt also noted to have diminished TSH, and neg C. diff. GI consulted for diarrhea. Etiology of diarrhea may be multifactorial, in the setting of chemotherapy and also hyperthyroidism. Abd soft, labs are stable - Await stool cultures - C. diff neg - If infectious w/u neg, consider Imodium 1-2 tabs BID PRN - ABX as per primary service for UTI - Methimazole as per primary service for hyperthyroidism - For nausea, would use PRN Zofran as it seemed to have worked well for him as an outpt - Consider nutrition eval to optimize his PO intake Thank you for allowing us to participate in the care of this patient. Please call with any acute changes, questions or concerns. Please see addendum below with additional recommendation from my supervising physician. Supervising Physician Co-Signing Physician Notes Late entry: Patient was seen and examined on 12/09 with Soraya Curry PA-C whose note reflects our findings and plan. History of Present Illness Reason for Consultation: Diarrhea,HCC,cirrhosis Requesting Physician: Dr. Vega Attending Physician: Juani Vega MD History of Present Illness Mr. Solomon Butterfield is a 73 year old male with PMHx hepatitis-C previously tx, cirrhosis, hepatocellular carcinoma dx'd in 12/2015, tx by IR and chemo (no role for TACE), most recently started on 10/06/20 with Cabozantinib. He presented to the ER 12/07 with nausea vomiting and diarrhea, weakness. Found to have hypomag 1.6 which has been corrected, hyperthyroid with TSH at 0.039. Other labs with HGB 13.8, WBC 2k, plt 43, normal Na/K, renal fxn, AST 120, ALT 76, tbili 1.4 KUB with no obstruction. Urine suggests UTI and he's been placed on ABX for that. GI consulted for diarrhea. Since admission he's had several loose stools. C. diff neg, stool culture pending. He's being started on methimazole. Pt states he has had ongoing nausea, diarrhea for the last 2 weeks or so, usually has 3-4 loose BMs daily, brown, no hematochezia, hematemesis. Has generalized discomfort (epigastric mostly) believes related to HCC but not significant in severity. For the last 1.5 months after starting most recent chemo, pt reports decreased appetite, intermittent vomiting after eating, just not feeling great. Was given Zofran as an outpt and this seemed to help. Feels better since admission Typically stools are solid, brown, regular. Denies CP, SOB. Allergies Allergy/AdvReac Type Severity Reaction Status Date / Time Penicillins Allergy Rash Verified 12/08/20 12:44 Home Medications Medication Instructions Recorded Confirmed Type amlodipine 5 mg PO DAILY 12/07/20 12/07/20 History cabozantinib [Cabometyx] 60 mg PO DIRECTED 12/07/20 12/07/20 History diclofenac sodium 1 ea TOPICAL DIRECTED 12/07/20 12/07/20 History hydroxyzine HCl 10 mg PO DIRECTED 12/07/20 12/07/20 History ondansetron 8 mg PO DIRECTED 12/07/20 12/07/20 History tamsulosin 0.4 mg PO DIRECTED 12/07/20 12/07/20 History Patient History Medical History (Updated 12/08/20 @ 14:28 by Juani Vega MD) Hepatitis C Hepatocellular carcinoma Pleural effusion, right Social History Smoking Status: Former smoker Hx Alcohol Use: Yes Alcohol type: beer Hx Substance Use: No Preferred Language: Trinidadian Communication Ability: Effective Basketball Assembler Required: No Beliefs That Will Affect Care: None marital status: Single Current Living Situation: Family Current Living Situation Comment: Dtr Feels Safe at Home: Yes Safety Concerns: Feels Safe At This Time Assistive Devices: Glasses Review of Systems Review of Systems: All systems reviewed & are unremarkable except as noted in HPI & below Physical Exam Constitutional: no acute distress Chronically ill, no acute distress Eyes: + anicteric sclerae Respiratory: normal respiratory effort, lungs clear to auscultation Cardiovascular: Rate/Rhythm: regular rate and regular rhythm Extremities: no pedal edema Skin: no rashes, warm and dry Psychiatric: A+Ox3, euthymic affect Results & Data ([facility]) Vital Signs (Past 12 Hours) Vital Signs Temp Pulse Resp BP Pulse Ox 12/09/20 07:47 36.7 C 100 H 20 158/90 H 91 12/08/20 23:15 36.5 C 96 H 16 157/83 H 92 Laboratory Results 12/09/20 12/09/20 12/08/20 Range/Units 06:09 06:09 08:45 WBC 2.14 L (4.8-10.8) K/uL RBC 4.49 L (4.7-6.1) M/uL Hgb 13.8 L (14.0-18.0) g/dL Hct 40.0 L (42-52) % MCV 89.1 (80-100) fL MCH 30.7 (25-34) pg MCHC 34.5 (32-36) g/dL RDW Std Deviation 61.0 H (36.4-46.3) fL RDW Coeff of Juan C 19.0 H (11.5-14.5) % Plt Count 43 L (130-400) K/uL MPV 10.8 H (7.4-10.4) fL Immature Gran % (Auto) 0.0 % Neut % (Auto) 41.0 % Lymph % (Auto) 31.8 % [place] % (Auto) 16.4 % Eos % (Auto) 10.3 % Baso % (Auto) 0.5 % Neut # (Auto) 0.88 L* (1.4-6.5) K/uL Lymph # (Auto) 0.68 L (1.2-3.4) K/uL [place] # (Auto) 0.35 (0.11-0.59) K/uL Eos # (Auto) 0.22 (0-0.5) K/uL Baso # (Auto) 0.01 (0-0.2) K/uL Immature Gran # (Auto) 0.00 (0.00-0.02) K/uL [place] Platelets 1+ Sodium 138 (136-145) mmol/L Potassium 3.5 (3.5-5.1) mmol/L Chloride 106 (98-107) mmol/L Carbon Dioxide 26 (21-32) mmol/L Anion Gap 6.0 (3-11) BUN 15 (7-18) mg/dl Creatinine 0.86 (0.6-1.4) mg/dl Est Cr Clr Drug Dosing 86.8 ml/min Est GFR ( Amer) 99.7 Est GFR (Non-Af Amer) 86.0 BUN/Creatinine Ratio 17.0 (10-20) Glucose 100 H (70-99) mg/dl Calcium 8.0 L (8.5-10.1) mg/dl Phosphorus 2.4 L (2.5-4.9) mg/dl Magnesium 2.0 (1.8-2.4) mg/dl Total Bilirubin 1.4 H (0.2-1) mg/dl AST 120 H (15-37) U/L ALT 76 (12-78) U/L Alkaline Phosphatase 100 (45-117) U/L Total Protein 5.6 L (6.4-8.2) gm/dl Albumin 2.1 L (3.4-5.0) gm/dl Globulin 3.5 (2.5-4.0) gm/dl Albumin/Globulin Ratio 0.6 L (0.9-2) Free T3 8.13 H (2.3-4.2) pg/ml Diagnostic Findings CXR IMPRESSION: Nonobstructed abdominal bowel gas pattern. (1) Diarrhea Diarrhea type: unspecified type Qualified Code(s): R19.7 - Diarrhea, unspecified
--- NOTE | 2020-12-09 14:47 | Hospitalist Progress Note ---
Date of Service December 09, 2020 Assessment & Plan (1) Diarrhea: Has been complaining of diarrhea about 3-4 loose stools per day for the last 9 days Denies any abdominal pain but has epigastric discomfort with nausea but no vomiting Stool for C. difficile is negative Urine culture has been sent-negative. Stool cultures negative so far Could be secondary to gastroenteritis/side effects of chemotherapy Will try Imodium when infection has been ruled out May need GI evaluation if the diarrhea does not improve GI consult appreciated Clinically better today (2) Weakness: Has been ongoing (3) Urinary tract infection: UA suggestive of infection Started on intravenous ceftriaxone Discontinue intravenous ceftriaxone (4) Hepatocellular carcinoma: History of hepatocellular carcinoma diagnosed in 2016 status post partial hepatic excision in 2015 and followed by recurrence in February 2019 Was on Nexavar and Opdivo before and now has been on Cabometyx Has an appointment with oncologist at [facility] (5) Hepatitis C: History of hepatitis C (6) Hyperthyroidism: Noted to have hypothyroidism during this admission No thyromegaly Does not have any palpitation but has borderline tachycardia and the diarrhea could be secondary to hyperthyroidism TSH of 0.039, free T4 5.71 and free T3 is 8.13 Discussed with on-call geochemist in [place] and suggested to restart methimazole at 2.5 mg daily and monitor CBC and GI consult for diarrhea Denies any palpitation-we will monitor CBC (7) Thrombocytopenia: Secondary to hepatic carcinoma and also of cirrhosis Will monitor Pancytopenia Antineoplastic chemotherapy induced pancytopenia DVT prophylaxis SCDs due to thrombocytopenia CODE STATUS Full Admission and Anticipated Discharge Date Admission Date: December 07, 2020 Subjective 12/08/2020 The patient was seen and examined in medical telemetry unit 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 apparently has been complaining of diarrhea for the last 9 days with epigastric discomfort and nausea without vomiting She still has nausea as of this morning but denies any significant pain No fever and/or chills He is generally weak 12/09/2020 The patient was seen and examined in medical telemetry unit He continues to have diarrhea but clinically feeling a lot better He has decreased in nausea and denies any vomiting He seems to be a little bit bloated Review of Systems Review of Systems: All systems reviewed and are unremarkable except as noted below Gastrointestinal: + nausea and + diarrhea/loose stools; no bloating and no vomiting Neurologic: + generalized weakness Physical Exam Physical Exam: Lying in bed comfortably Constitutional: well developed, well nourished and + ill appearing; no acute distress Eyes: PERRL, conjunctivae normal, anicteric sclerae ENMT: external ear and nose normal, oropharynx normal Neck: trachea midline, no thyromegaly Respiratory: normal respiratory effort; no respiratory distress Auscultation: lungs clear to auscultation bilaterally Cardiovascular: Rate/Rhythm: regular rate and regular rhythm Heart Sounds: no murmur Extremities: no edema Gastrointestinal (Abdomen): Inspection/Auscultation: + abdomen distended and normal bowel sounds Percussion/Palpation: abdomen soft; abdomen nontender and no guarding Musculoskeletal: No acute arthritis in any joint Neurologic: Alert, awake and oriented x3. Generally very weak and lethargic Psychiatric: A+Ox3, euthymic affect Lymphatic: no cervical or axillary lymphadenopathy Results & Data Results & Data ([facility]) Vital Signs (Past 12 Hours) Vital Signs Temp Pulse Resp BP Pulse Ox 12/09/20 07:47 36.7 C 100 H 20 158/90 H 91 Laboratory Results Short CBC 12/09/20 Range/Units 06:09 WBC 2.14 L (4.8-10.8) K/uL Hgb 13.8 L (14.0-18.0) g/dL Hct 40.0 L (42-52) % Plt Count 43 L (130-400) K/uL BMP 12/09/20 06:09 Sodium 138 Potassium 3.5 Chloride 106 Carbon Dioxide 26 BUN 15 Creatinine 0.86 Glucose 100 H Calcium 8.0 L Liver Function 12/09/20 Range/Units 06:09 Total Bilirubin 1.4 H (0.2-1) mg/dl AST 120 H (15-37) U/L ALT 76 (12-78) U/L Alkaline Phosphatase 100 (45-117) U/L Albumin 2.1 L (3.4-5.0) gm/dl Medications Administered Current Inpatient Medications Acetaminophen (Acetaminophen 325 Mg Tab) 650 mg PO Q4H PRN PRN Reason: pain/fever Stop: 01/07/21 02:01 Last Admin: 12/09/20 13:01 Dose: 650 mg Documented by: Amlodipine Besylate (Amlodipine Besylate 5 Mg Tab) 5 mg PO DAILY [facility] Stop: 01/07/21 08:59 Last Admin: 12/09/20 08:05 Dose: 5 mg Documented by: Diclofenac Sodium (Diclofenac Sod 1% Gel 100 Gm Tube) 1 gm EXT QID PRN PRN Reason: Pain Stop: 01/07/21 08:59 Last Admin: 12/09/20 13:28 Dose: 1 gm Documented by: Dextrose/Sodium Chloride (D5w And Nss) 1,000 mls @ 75 mls/hr IV .[id number] [facility] Stop: 01/07/21 02:01 Last Admin: 12/09/20 04:31 Dose: 75 mls/hr Documented by: Ceftriaxone Sodium 2,000 mg/ (Dextrose) 70 mls @ 100 mls/hr IV Q24H [facility]; Protocol Stop: 12/11/20 16:41 Last Infusion: 12/08/20 17:19 Dose: Infused Documented by: Promethazine HCl 12.5 mg/ (Sodium Chloride) 50.5 mls @ 202 mls/hr IV Q6H PRN PRN Reason: Nausea And Vomiting Stop: 01/07/21 13:57 Last Infusion: 12/08/20 18:13 Dose: Infused Documented by: Methimazole (Methimazole 5 Mg Tablet) 2.5 mg PO DAILY [facility] Stop: 01/07/21 11:14 Last Admin: 12/09/20 08:05 Dose: 2.5 mg Documented by: Ondansetron HCl (Ondansetron Inj 2 Mg/Ml 2 Ml Vial) 4 mg IV Q6H PRN PRN Reason: Nausea Stop: 01/07/21 02:01 Last Admin: 12/08/20 16:22 Dose: 4 mg Documented by: Oxycodone HCl (Oxycodone Hcl Ir 5 Mg Tab (Immediate Release)) 10 mg PO Q6H PRN PRN Reason: Pain Stop: 12/23/20 08:12 (1) Diarrhea Diarrhea type: unspecified type Qualified Code(s): R19.7 - Diarrhea, unspecified (2) Urinary tract infection Hematuria presence: without hematuria Urinary tract infection type: site unspecified Qualified Code(s): N39.0 - Urinary tract infection, site not specified
[2020-12-09] MEDS: PROMETHAZINE HCL 12.5 MG in SODIUM CHLORIDE 0.9% 50 ML IV PRN (16:53)
[2020-12-09] MEDS: oxyCODONE HCL IR 5 MG TAB (IMMEDIATE RELEASE) PO PRN (16:55)
[2020-12-09] MEDS: LOPERAMIDE HCL 2 MG CAP PO PRN ×2 (16:56→21:08)
[2020-12-10] MEDS: oxyCODONE HCL IR 5 MG TAB (IMMEDIATE RELEASE) PO PRN ×3 (00:53→23:33)
[2020-12-10] MEDS: D5W AND NSS 1,000 ML IV SCH ×2 (04:23→17:22)
[2020-12-10] MEDS: methIMAzole 5 MG TABLET PO SCH (07:27)
[2020-12-10] MEDS: amLODIPine BESYLATE 5 MG TAB PO SCH (07:27)
[2020-12-10] MEDS: LOPERAMIDE HCL 2 MG CAP PO PRN (07:27)
[2020-12-10 08:32] LABS: Hematocrit (blood only) 42.1 % (42-52); Hemoglobin 14.9 g/dL (14.0-18.0); Mean Corpuscular Hemoglobin 31.6 pg (25-34); Mean Corpuscular Hgb Conc 35.4 g/dL (32-36); Mean Corpuscular Volume 89.4 fL (80-100); RDW Coefficient of Variation 19.1 % (11.5-14.5); RDW Standard Deviation 62.5 fL (36.4-46.3); Red Blood Count 4.71 M/uL (4.7-6.1)
[2020-12-10 08:33] LABS: Mean Platelet Volume 10.3 fL (7.4-10.4); Platelet Count 43 K/uL (130-400)
[2020-12-10 09:47] LABS: Basophils # (auto) 0.01 K/uL (0-0.2); Basophils % (auto) 0.5 %; Lymphocytes # (auto) 0.54 K/uL (1.2-3.4); Monocytes # (auto) 0.32 K/uL (0.11-0.59); Neutrophils # (auto) 0.83 K/uL (1.4-6.5); Neutrophils % (auto) 41.5 %
--- NOTE | 2020-12-10 11:08 | Gastroenterology Progress Note ---
Date of Service December 10, 2020 Assessment & Plan (1) Diarrhea: This is a 75 y/o male with h/o Hep C, cirrhosis, with HCC, on chemotherapy with Cabozantinib, admitted with nausea, intermittent vomiting, diarrhea; Pt also noted to have diminished TSH, and neg C. diff. GI consulted for diarrhea. Etiology of diarrhea may be multifactorial, particularly in the setting of hyperthyroidism. Abd soft, labs are stable. - Await stool cultures - If infectious w/u neg, consider continuing Imodium 1-2 tabs BID PRN - Could also add daily Benefiber 1 tablespoon to thicken the stools, then consider Questran/Colestipol if needed - ABX as per primary service for UTI - Methimazole as per primary service for hyperthyroidism - For nausea, continue PRN Zofran - Consider nutrition eval to optimize his PO intake GI will sign off, please call with questions Admission and Anticipated Discharge Date Admission Date: December 07, 2020 Supervising Physician Co-Signing Physician Notes Late entry: Patient was seen and examined on 12/10 with Soraya Curry PA-C whose note reflects our findings and plan. Subjective Patient seen and examined, chart reviewed. Reports feeling somewhat improved; tolerating clear liquids. Only a few documented stools since yesterday in the chart; pt not sure how many he had yesterday; nurse reports one loose stool this AM. He was given a dose of Imodium yesterday and one today. Final stool culture pending. Denies vomiting, abd pain, melena, hematochezia. Labs are stable. Review of Systems Review of Systems: All systems reviewed & are unremarkable except as noted in HPI & below Physical Exam Constitutional: no acute distress Eyes: + anicteric sclerae Respiratory: normal respiratory effort Cardiovascular: Rate/Rhythm: regular rate and regular rhythm Extremities: no pedal edema Gastrointestinal (Abdomen): normal bowel sounds, soft, nontender, no hepatosplenomegaly Skin: no rashes, warm and dry Psychiatric: A+Ox3, euthymic affect Results & Data ([facility]) Vital Signs (Past 12 Hours) Vital Signs Temp Pulse Resp BP BP Pulse Ox 12/10/20 07:33 36.0 C L 81 20 161/88 H 92 12/10/20 04:24 36.3 C L 73 18 131/81 93 12/09/20 23:55 36.5 C 78 20 138/81 92 Laboratory Results 12/10/20 Range/Units 08:25 WBC 2.00 L (4.8-10.8) K/uL RBC 4.71 (4.7-6.1) M/uL Hgb 14.9 (14.0-18.0) g/dL Hct 42.1 (42-52) % MCV 89.4 (80-100) fL MCH 31.6 (25-34) pg MCHC 35.4 (32-36) g/dL RDW Std Deviation 62.5 H (36.4-46.3) fL RDW Coeff of Juan C 19.1 H (11.5-14.5) % Plt Count 43 L (130-400) K/uL MPV 10.3 (7.4-10.4) fL Immature Gran % (Auto) 0.0 % Neut % (Auto) 41.5 % Lymph % (Auto) 27.0 % [place] % (Auto) 16.0 % Eos % (Auto) 15.0 % Baso % (Auto) 0.5 % Neut # (Auto) 0.83 L* (1.4-6.5) K/uL Lymph # (Auto) 0.54 L (1.2-3.4) K/uL [place] # (Auto) 0.32 (0.11-0.59) K/uL Eos # (Auto) 0.30 (0-0.5) K/uL Baso # (Auto) 0.01 (0-0.2) K/uL Immature Gran # (Auto) 0.00 (0.00-0.02) K/uL (1) Diarrhea Diarrhea type: unspecified type Qualified Code(s): R19.7 - Diarrhea, unspecified
--- NOTE | 2020-12-10 13:37 | Hospitalist Progress Note ---
Date of Service December 10, 2020 Assessment & Plan (1) Diarrhea: Has been complaining of diarrhea about 3-4 loose stools per day for the last 9 days Denies any abdominal pain but has epigastric discomfort with nausea but no vomiting Stool for C. difficile is negative Urine culture has been sent-negative. Stool cultures negative so far Could be secondary to gastroenteritis/side effects of chemotherapy Will try Imodium when infection has been ruled out May need GI evaluation if the diarrhea does not improve GI consult appreciated Continues to have diarrhea-we will try Imodium as needed, Benefiber is added Stool cultures have been negative so far (2) Weakness: Has been ongoing We will get PT and OT evaluation (3) Urinary tract infection: UA suggestive of infection Started on intravenous ceftriaxone Discontinue intravenous ceftriaxone (4) Hepatocellular carcinoma: History of hepatocellular carcinoma diagnosed in 2016 status post partial hepatic excision in 2015 and followed by recurrence in February 2019 Was on Nexavar and Opdivo before and now has been on Cabometyx Has an appointment with oncologist at [facility] Antineoplastic medication is on hold (5) Hepatitis C: History of hepatitis C (6) Hyperthyroidism: Noted to have hypothyroidism during this admission No thyromegaly Does not have any palpitation but has borderline tachycardia and the diarrhea could be secondary to hyperthyroidism TSH of 0.039, free T4 5.71 and free T3 is 8.13 Discussed with on-call commercial insurance underwriter in [place] and suggested to restart methimazole at 2.5 mg daily and monitor CBC and GI consult for diarrhea Denies any palpitation-we will monitor CBC CBC seems to be stable-continue methimazole (7) Thrombocytopenia: Secondary to hepatic carcinoma and also of cirrhosis Will monitor Pancytopenia Antineoplastic chemotherapy induced pancytopenia DVT prophylaxis SCDs due to thrombocytopenia CODE STATUS Full Admission and Anticipated Discharge Date Admission Date: December 07, 2020 Subjective 12/08/2020 The patient was seen and examined in medical telemetry unit 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 apparently has been complaining of diarrhea for the last 9 days with epigastric discomfort and nausea without vomiting She still has nausea as of this morning but denies any significant pain No fever and/or chills He is generally weak 12/09/2020 The patient was seen and examined in medical telemetry unit He continues to have diarrhea but clinically feeling a lot better He has decreased in nausea and denies any vomiting He seems to be a little bit bloated 12/10/2020 The patient was seen and examined in medical telemetry unit He remains generally weak and lethargic and continues to have diarrhea Stool cultures have been negative so far C. difficile is negative to Continue Imodium and Benefiber as advised by the GI Review of Systems Review of Systems: All systems reviewed and are unremarkable except as noted below Gastrointestinal: + nausea and + diarrhea/loose stools; no bloating and no vomiting Neurologic: + generalized weakness Physical Exam Physical Exam: Lying in bed comfortably Constitutional: well developed, well nourished and + ill appearing; no acute distress Eyes: PERRL, conjunctivae normal, anicteric sclerae ENMT: external ear and nose normal, oropharynx normal Neck: trachea midline, no thyromegaly Respiratory: normal respiratory effort; no respiratory distress Auscultation: lungs clear to auscultation bilaterally Cardiovascular: Rate/Rhythm: regular rate and regular rhythm Heart Sounds: no murmur Extremities: no edema Gastrointestinal (Abdomen): Inspection/Auscultation: + abdomen distended and normal bowel sounds Percussion/Palpation: abdomen soft; abdomen nontender and no guarding Musculoskeletal: No acute arthritis in any joint Neurologic: Alert, awake and oriented x3. Generally very weak and lethargic Psychiatric: A+Ox3, euthymic affect Lymphatic: no cervical or axillary lymphadenopathy Results & Data Results & Data ([facility] [place]) Vital Signs (Past 12 Hours) Vital Signs Temp Pulse Resp BP BP Pulse Ox 12/10/20 07:33 36.0 C L 81 20 161/88 H 92 12/10/20 04:24 36.3 C L 73 18 131/81 93 Laboratory Results Short CBC 12/10/20 Range/Units 08:25 WBC 2.00 L (4.8-10.8) K/uL Hgb 14.9 (14.0-18.0) g/dL Hct 42.1 (42-52) % Plt Count 43 L (130-400) K/uL Medications Administered Current Inpatient Medications Acetaminophen (Acetaminophen 325 Mg Tab) 650 mg PO Q4H PRN PRN Reason: pain/fever Stop: 01/07/21 02:01 Last Admin: 12/09/20 13:01 Dose: 650 mg Documented by: Amlodipine Besylate (Amlodipine Besylate 5 Mg Tab) 5 mg PO DAILY [facility] Stop: 01/07/21 08:59 Last Admin: 12/10/20 07:27 Dose: 5 mg Documented by: Diclofenac Sodium (Diclofenac Sod 1% Gel 100 Gm Tube) 1 gm EXT QID PRN PRN Reason: Pain Stop: 01/07/21 08:59 Last Admin: 12/09/20 13:28 Dose: 1 gm Documented by: Dextrose/Sodium Chloride (D5w And Nss) 1,000 mls @ 75 mls/hr IV .[id number] [facility] Stop: 01/07/21 02:01 Last Admin: 12/10/20 04:23 Dose: 75 mls/hr Documented by: Promethazine HCl 12.5 mg/ (Sodium Chloride) 50.5 mls @ 202 mls/hr IV Q6H PRN PRN Reason: Nausea And Vomiting Stop: 01/07/21 13:57 Last Infusion: 12/09/20 17:09 Dose: Infused Documented by: Loperamide HCl (Loperamide Hcl 2 Mg Cap) 2 mg PO Q2H PRN PRN Reason: Diarrhea Stop: 01/08/21 16:35 Last Admin: 12/10/20 07:27 Dose: 2 mg Documented by: Methimazole (Methimazole 5 Mg Tablet) 2.5 mg PO DAILY [facility] Stop: 01/07/21 11:14 Last Admin: 12/10/20 07:27 Dose: 2.5 mg Documented by: Ondansetron HCl (Ondansetron Inj 2 Mg/Ml 2 Ml Vial) 4 mg IV Q6H PRN PRN Reason: Nausea Stop: 01/07/21 02:01 Last Admin: 12/08/20 16:22 Dose: 4 mg Documented by: Oxycodone HCl (Oxycodone Hcl Ir 5 Mg Tab (Immediate Release)) 10 mg PO Q6H PRN PRN Reason: Pain Stop: 12/23/20 08:12 Last Admin: 12/10/20 00:53 Dose: 10 mg Documented by: (1) Diarrhea Diarrhea type: unspecified type Qualified Code(s): R19.7 - Diarrhea, unspecified (2) Urinary tract infection Hematuria presence: without hematuria Urinary tract infection type: site unspecified Qualified Code(s): N39.0 - Urinary tract infection, site not specified
[2020-12-10] MEDS ORDERED: hydrOXYzine HCl 10 MG TAB PO SCH (16:00)
[2020-12-10] MEDS: lisinopril 2.5 MG TAB PO SCH (16:38)
[2020-12-10] MEDS: ONDANSETRON INJ 2 MG/ML 2 ML VIAL IV PRN (16:38)
[2020-12-10] MEDS: TAMSULOSIN HCL 0.4 MG CAP PO SCH (17:16)
[2020-12-10] MEDS ORDERED: PROMETHAZINE HCL 12.5 MG in SODIUM CHLORIDE 0.9% 50 ML IV PRN (17:28)
[2020-12-11] MEDS: D5W AND NSS 1,000 ML IV SCH ×2 (06:18→20:17)
[2020-12-11 07:24] LABS: Hematocrit (blood only) 42.1 % (42-52); Hemoglobin 14.4 g/dL (14.0-18.0); Mean Corpuscular Hemoglobin 30.8 pg (25-34); Mean Corpuscular Hgb Conc 34.2 g/dL (32-36); RDW Coefficient of Variation 19.3 % (11.5-14.5); RDW Standard Deviation 62.2 fL (36.4-46.3); Red Blood Count 4.68 M/uL (4.7-6.1); White Blood Count 2.14 K/uL (4.8-10.8)
[2020-12-11] MEDS: PROMETHAZINE HCL 12.5 MG in SODIUM CHLORIDE 0.9% 50 ML IV PRN ×2 (07:44→16:01)
[2020-12-11] MEDS: TAMSULOSIN HCL 0.4 MG CAP PO SCH (07:47)
[2020-12-11] MEDS: amLODIPine BESYLATE 5 MG TAB PO SCH (07:47)
[2020-12-11] MEDS: methIMAzole 5 MG TABLET PO SCH (07:48)
[2020-12-11] MEDS: lisinopril 2.5 MG TAB PO SCH (07:51)
[2020-12-11] MEDS: LOPERAMIDE HCL 2 MG CAP PO PRN ×2 (07:55→21:28)
[2020-12-11] MEDS: oxyCODONE HCL IR 5 MG TAB (IMMEDIATE RELEASE) PO PRN ×3 (07:55→21:27)
[2020-12-11 08:05] LABS: BUN Creatinine Ratio 17.9 (10-20); Creatinine Clr Calc Pharmacy 83.3 ml/min; Est GFR (African American) 97.9; Est GFR (Non-African American) 84.4; Magnesium 1.9 mg/dl (1.8-2.4); Potassium 3.8 mmol/L (3.5-5.1)
[2020-12-11 08:13] LABS: Basophils # (auto) 0.01 K/uL (0-0.2); Basophils % (auto) 0.5 %; Eosinophils # (auto) 0.26 K/uL (0-0.5); Eosinophils % (auto) 12.1 %; Lymphocytes # (auto) 0.55 K/uL (1.2-3.4); Lymphocytes % (auto) 25.7 %; Monocytes # (auto) 0.25 K/uL (0.11-0.59); Monocytes % (auto) 11.7 %; Neutrophils # (auto) 1.07 K/uL (1.4-6.5); Platelet Count 41 K/uL (130-400); Platelet Estimate SIGNIFIC DECREASED (Normal)
[2020-12-11] MEDS: ONDANSETRON INJ 2 MG/ML 2 ML VIAL IV PRN ×2 (09:56→21:27)
--- NOTE | 2020-12-11 15:13 | Hospitalist Progress Note ---
Date of Service December 11, 2020 Assessment & Plan (1) Diarrhea: Has been complaining of diarrhea about 3-4 loose stools per day for the last 9 days Denies any abdominal pain but has epigastric discomfort with nausea but no vomiting Stool for C. difficile is negative Urine culture has been sent-negative. Stool cultures negative so far Could be secondary to gastroenteritis/side effects of chemotherapy Will try Imodium when infection has been ruled out GI consult appreciated Continues to have frequent diarrhea Will add cholestyramine on top of Imodium Stool culture seems to be negative for any infection (2) Weakness: Has been ongoing We will get PT and OT evaluation (3) Urinary tract infection: UA suggestive of infection Started on intravenous ceftriaxone Discontinue intravenous ceftriaxone (4) Hepatocellular carcinoma: History of hepatocellular carcinoma diagnosed in 2016 status post partial hepatic excision in 2015 and followed by recurrence in February 2019 Was on Nexavar and Opdivo before and now has been on Cabometyx Has an appointment with oncologist at [facility] Antineoplastic medication is on hold We will advised to keep appointment with the oncologist Dr. Gómez (5) Hepatitis C: History of hepatitis C (6) Hyperthyroidism: Noted to have hypothyroidism during this admission No thyromegaly Does not have any palpitation but has borderline tachycardia and the diarrhea could be secondary to hyperthyroidism TSH of 0.039, free T4 5.71 and free T3 is 8.13 Discussed with on-call esol instructor in [place] and suggested to restart methimazole at 2.5 mg daily and monitor CBC and GI consult for diarrhea Denies any palpitation-we will monitor CBC CBC seems to be stable-continue methimazole Heart rate seems to be decreased and CBC with differential remain unremarkable- we will continue methimazole 2.5 mg daily He will have a TSH and free T4 level done as an outpatient in 2 to 3 weeks (7) Thrombocytopenia: Secondary to hepatic carcinoma and also of cirrhosis Will monitor Pancytopenia Antineoplastic chemotherapy induced pancytopenia DVT prophylaxis SCDs due to thrombocytopenia CODE STATUS Full Admission and Anticipated Discharge Date Admission Date: December 07, 2020 Subjective 12/08/2020 The patient was seen and examined in medical telemetry unit 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 apparently has been complaining of diarrhea for the last 9 days with epigastric discomfort and nausea without vomiting She still has nausea as of this morning but denies any significant pain No fever and/or chills He is generally weak 12/09/2020 The patient was seen and examined in medical telemetry unit He continues to have diarrhea but clinically feeling a lot better He has decreased in nausea and denies any vomiting He seems to be a little bit bloated 12/10/2020 The patient was seen and examined in medical telemetry unit He remains generally weak and lethargic and continues to have diarrhea Stool cultures have been negative so far C. difficile is negative to Continue Imodium and Benefiber as advised by the GI 12/11/2020 The patient was seen and examined in medical telemetry unit He remains extremely weak and lethargic and continues to have diarrhea small amount frequently Has associated nausea but no abdominal pain Denies any fever and/or chills Review of Systems Review of Systems: All systems reviewed and are unremarkable except as noted below Gastrointestinal: + nausea and + diarrhea/loose stools; no bloating and no vomiting Neurologic: + generalized weakness Physical Exam Physical Exam: Lying in bed comfortably Constitutional: well developed, well nourished and + ill appearing; no acute distress Eyes: PERRL, conjunctivae normal, anicteric sclerae ENMT: external ear and nose normal, oropharynx normal Neck: trachea midline, no thyromegaly Respiratory: normal respiratory effort; no respiratory distress Auscultation: lungs clear to auscultation bilaterally Cardiovascular: Rate/Rhythm: regular rate and regular rhythm Heart Sounds: no murmur Extremities: no edema Gastrointestinal (Abdomen): Inspection/Auscultation: + abdomen distended and normal bowel sounds Percussion/Palpation: abdomen soft; abdomen nontender and no guarding Musculoskeletal: No acute arthritis in any joint Neurologic: Alert, awake and oriented x3. No focal sensory and motor deficit appreciated but generally very weak and lethargic Psychiatric: A+Ox3, euthymic affect Lymphatic: no cervical or axillary lymphadenopathy Results & Data Results & Data ([facility]) Vital Signs (Past 12 Hours) Vital Signs Temp Pulse Resp BP Pulse Ox 12/11/20 07:27 36.6 C 69 18 111/70 95 Laboratory Results Short CBC 12/11/20 Range/Units 07:10 WBC 2.14 L (4.8-10.8) K/uL Hgb 14.4 (14.0-18.0) g/dL Hct 42.1 (42-52) % Plt Count 41 L (130-400) K/uL BMP 12/11/20 07:10 Sodium 138 Potassium 3.8 Chloride 108 H Carbon Dioxide 27 BUN 16 Creatinine 0.90 Glucose 111 H Calcium 8.0 L Medications Administered Current Inpatient Medications Acetaminophen (Acetaminophen 325 Mg Tab) 650 mg PO Q4H PRN PRN Reason: pain/fever Stop: 01/07/21 02:01 Last Admin: 12/09/20 13:01 Dose: 650 mg Documented by: Amlodipine Besylate (Amlodipine Besylate 5 Mg Tab) 5 mg PO DAILY [facility] Stop: 01/07/21 08:59 Last Admin: 12/11/20 07:47 Dose: 5 mg Documented by: Cholestyramine Resin (Cholestyramine Light 4 Gm Pkt) 4 gm PO BID@1000,2200 [facility] Stop: 01/10/21 21:59 Diclofenac Sodium (Diclofenac Sod 1% Gel 100 Gm Tube) 1 gm EXT QID PRN PRN Reason: Pain Stop: 01/07/21 08:59 Last Admin: 12/09/20 13:28 Dose: 1 gm Documented by: Dextrose/Sodium Chloride (D5w And Nss) 1,000 mls @ 75 mls/hr IV .[id number] [facility] Stop: 01/07/21 02:01 Last Admin: 12/11/20 06:18 Dose: 75 mls/hr Documented by: Promethazine HCl 12.5 mg/ (Sodium Chloride) 50.5 mls @ 202 mls/hr IV Q6H PRN PRN Reason: Nausea And Vomiting Stop: 01/07/21 13:57 Last Infusion: 12/11/20 09:24 Dose: Infused Documented by: Lisinopril (Lisinopril 2.5 Mg Tab) 2.5 mg PO QAM [facility] Stop: 01/09/21 15:59 Last Admin: 12/11/20 07:51 Dose: 2.5 mg Documented by: Loperamide HCl (Loperamide Hcl 2 Mg Cap) 2 mg PO Q2H PRN PRN Reason: Diarrhea Stop: 01/08/21 16:35 Last Admin: 12/11/20 07:55 Dose: 2 mg Documented by: Methimazole (Methimazole 5 Mg Tablet) 2.5 mg PO DAILY [facility] Stop: 01/07/21 11:14 Last Admin: 12/11/20 07:48 Dose: 2.5 mg Documented by: Ondansetron HCl (Ondansetron Inj 2 Mg/Ml 2 Ml Vial) 4 mg IV Q6H PRN PRN Reason: Nausea Stop: 01/07/21 02:01 Last Admin: 12/11/20 09:56 Dose: 4 mg Documented by: Oxycodone HCl (Oxycodone Hcl Ir 5 Mg Tab (Immediate Release)) 5 mg PO Q6H PRN PRN Reason: Pain Stop: 12/23/20 08:12 Tamsulosin HCl (Tamsulosin Hcl 0.4 Mg Cap) 0.4 mg PO DAILY [facility] Stop: 01/09/21 15:59 Last Admin: 12/11/20 07:47 Dose: 0.4 mg Documented by: (1) Diarrhea Diarrhea type: unspecified type Qualified Code(s): R19.7 - Diarrhea, unspecified (2) Urinary tract infection Hematuria presence: without hematuria Urinary tract infection type: site unspecified Qualified Code(s): N39.0 - Urinary tract infection, site not specified
[2020-12-11] MEDS: CHOLESTYRAMINE LIGHT 4 GM PKT PO SCH (21:24)
[2020-12-12] MEDS: LOPERAMIDE HCL 2 MG CAP PO PRN ×3 (05:44→19:10)
[2020-12-12] MEDS: PROMETHAZINE HCL 12.5 MG in SODIUM CHLORIDE 0.9% 50 ML IV PRN (06:00)
[2020-12-12] MEDS: oxyCODONE HCL IR 5 MG TAB (IMMEDIATE RELEASE) PO PRN ×2 (06:35→19:59)
[2020-12-12] MEDS: ONDANSETRON INJ 2 MG/ML 2 ML VIAL IV PRN ×2 (07:37→19:10)
[2020-12-12] MEDS: TAMSULOSIN HCL 0.4 MG CAP PO SCH (07:43)
[2020-12-12] MEDS: methIMAzole 5 MG TABLET PO SCH (07:43)
[2020-12-12] MEDS: lisinopril 2.5 MG TAB PO SCH (07:44)
[2020-12-12] MEDS: amLODIPine BESYLATE 5 MG TAB PO SCH (07:44)
[2020-12-12] MEDS: D5W AND NSS 1,000 ML IV SCH (09:57)
[2020-12-12] MEDS: CHOLESTYRAMINE LIGHT 4 GM PKT PO SCH ×2 (09:57→21:31)
[2020-12-12 10:06] LABS: Influenza A virus by PCR Negative (Neg); Influenza B virus by PCR Negative (Neg); RSV by PCR Negative (Neg); SARS CoV2 RNA(COVID-19) InHosp NEGATIVE (Negative)
[2020-12-12] MEDS: THIAMINE HCL 100 MG TAB PO SCH (12:29)
--- NOTE | 2020-12-12 13:52 | Hospitalist Progress Note ---
Date of Service December 12, 2020 Assessment & Plan (1) Diarrhea: Ongoing Nausea, diarrhea DD: Secondary to hyperthyroidism, immunotherapy KUB:Nonobstructed abdominal bowel gas pattern. Stool culture negative Stool for C. difficile negative Appreciate GI input Continue Questran, Imodium as needed Patient intermittently refusing Questran Gentle IV fluids Impress Associate consulted Advance diet as tolerated Started on thiamine to minimize refeeding syndrome (2) Weakness: Secondary to comorbidities PT OT (3) Urinary tract infection: Urine culture negative Discontinue IV Rocephin (4) Hepatocellular carcinoma: H/O Hepatocellular carcinoma diagnosed in 2016 status post partial hepatic excision in 2015 and followed by recurrence in February 2019 Was on Nexavar and Opdivo before and now has been on Cabometyx Follows with Oncologist at [facility] Antineoplastic medication held Needs follow-up with oncology, Dr. Gómez upon discharge (5) Hepatitis C: History of hepatitis C (6) Hyperthyroidism: Hyperthyroidism Tachycardia and diarrhea likely secondary to hyperthyroidism TSH of 0.039, free T4 5.71 and free T3 is 8.13 Prior hospitalist discussed with on-call rn first assist in [place] and suggested to restart methimazole at 2.5 mg daily and monitor CBC and GI consult for diarrhea Monitor CBC continue methimazole Needs repeat thyroid function tests in 2 to 3 weeks as outpatient Needs follow-up with endocrinology upon discharge (7) Thrombocytopenia: Secondary to hepatic carcinoma/cirrhosis monitor Pancytopenia Antineoplastic chemotherapy induced pancytopenia DVT prophylaxis SCDs Re: Thrombocytopenia CODE STATUS Full Code Disposition PT OT prior to discharge Admission and Anticipated Discharge Date Admission Date: December 07, 2020 Subjective Patient is seen and examined at bedside States feeling tired, nauseous Also states having diarrhea today Poor oral intake Denies chest pain, SOB, dizziness Offers no other complaints Review of Systems Review of Systems: All systems reviewed & are unremarkable except as noted in HPI & below Physical Exam Physical Exam: Physical Exam: Vitals signs as noted above General Appearance:Moderately built and nourished, no apparent distress, Chronic ill appearing Head: normocephalic, Atraumatic Eyes: normal inspection, EOMI Neck: supple, Trachea midline Respiratory/Chest: Coarse breath sounds, CTA, No accessory muscle use Cardiovascular: S1, S2, No murmur, +Tachycardia Abdomen/GI:Soft, Non tender, Bowel sounds present Extremities/Musculoskeletal:normal inspection, 1+ B/L LE edema Neurologic/Psych:AAOX3, grossly no focal neurological deficits Skin: normal color, warm Results & Data Results & Data ([facility]) Vital Signs (Past 12 Hours) Vital Signs Temp Pulse Resp BP Pulse Ox 12/12/20 07:27 36.2 C L 114 H 20 172/84 H 93 (1) Diarrhea Diarrhea type: unspecified type Qualified Code(s): R19.7 - Diarrhea, unspecified (2) Urinary tract infection Hematuria presence: without hematuria Urinary tract infection type: site unspecified Qualified Code(s): N39.0 - Urinary tract infection, site not specified
[2020-12-13] MEDS: LOPERAMIDE HCL 2 MG CAP PO PRN ×3 (02:15→18:07)
[2020-12-13 05:45] LABS: Hematocrit (blood only) 43.8 % (42-52); Hemoglobin 15.2 g/dL (14.0-18.0); Mean Corpuscular Hgb Conc 34.7 g/dL (32-36); Mean Corpuscular Volume 89.4 fL (80-100); Nucleated RBC # (auto) 0.02 K/uL (0-0); Nucleated RBC % (auto) 0.8 %; RDW Coefficient of Variation 19.3 % (11.5-14.5); White Blood Count 2.23 K/uL (4.8-10.8)
[2020-12-13 05:59] LABS: Mean Platelet Volume 10.6 fL (7.4-10.4); Platelet Count 42 K/uL (130-400)
[2020-12-13 06:09] LABS: Basophils # (auto) 0.01 K/uL (0-0.2); Basophils % (auto) 0.4 %; Eosinophils # (auto) 0.23 K/uL (0-0.5); Eosinophils % (auto) 10.3 %; Giant Platelets 2+; Lymphocytes # (auto) 0.44 K/uL (1.2-3.4); Lymphocytes % (auto) 19.7 %; Monocytes # (auto) 0.25 K/uL (0.11-0.59); Monocytes % (auto) 11.2 %; Neutrophils % (auto) 58.4 %
[2020-12-13 06:21] LABS: BUN Creatinine Ratio 22.6 (10-20); Calcium 8.7 mg/dl (8.5-10.1); Creatinine Clr Calc Pharmacy 82.2 ml/min; Est GFR (African American) 96.6; Est GFR (Non-African American) 83.3; Magnesium 1.9 mg/dl (1.8-2.4); Potassium 3.5 mmol/L (3.5-5.1)
[2020-12-13] MEDS: D5W AND NSS 1,000 ML IV SCH (06:27)
[2020-12-13] MEDS: PROMETHAZINE HCL 12.5 MG in SODIUM CHLORIDE 0.9% 50 ML IV PRN (06:44)
[2020-12-13] MEDS: CHOLESTYRAMINE LIGHT 4 GM PKT PO SCH ×2 (07:56→21:13)
[2020-12-13] MEDS: amLODIPine BESYLATE 5 MG TAB PO SCH (08:01)
[2020-12-13] MEDS: THIAMINE HCL 100 MG TAB PO SCH (08:02)
[2020-12-13] MEDS: lisinopril 2.5 MG TAB PO SCH (08:02)
[2020-12-13] MEDS: methIMAzole 5 MG TABLET PO SCH (08:02)
[2020-12-13] MEDS: TAMSULOSIN HCL 0.4 MG CAP PO SCH (08:02)
[2020-12-13] MEDS: oxyCODONE HCL IR 5 MG TAB (IMMEDIATE RELEASE) PO PRN ×4 (08:02→23:27)
[2020-12-13] MEDS ORDERED: PSYLLIUM 58.6% POWDER PACKET PO SCH (09:00)
[2020-12-13] MEDS: PSYLLIUM 58.6% POWDER PACKET PO SCH (09:32)
--- NOTE | 2020-12-13 12:59 | Hospitalist Progress Note ---
Date of Service December 13, 2020 Assessment & Plan (1) Diarrhea: Ongoing Nausea, diarrhea DD: Secondary to hyperthyroidism, immunotherapy KUB:Non-obstructed abdominal bowel gas pattern. Stool culture negative Stool for C. difficile negative Appreciate GI input Continue Questran, Imodium as needed Patient intermittently refusing Questran Gentle IV fluids Utility [employer] consulted Continue regular diet as tolerated Started on thiamine to minimize refeeding syndrome Check KUB today Added Metamucil (2) Weakness: Secondary to comorbidities PT OT (3) Urinary tract infection: UTI Ruled out Urine culture negative IV Rocephin discontinued (4) Hepatocellular carcinoma: H/O Hepatocellular carcinoma diagnosed in 2016 status post partial hepatic excision in 2015 and followed by recurrence in February 2019 Was on Nexavar and Opdivo before and now has been on Cabometyx Follows with Oncologist at [facility] Antineoplastic medication held Needs follow-up with oncology, Dr. Gómez upon discharge (5) Hepatitis C: History of hepatitis C (6) Hyperthyroidism: Hyperthyroidism Tachycardia and diarrhea likely secondary to hyperthyroidism TSH of 0.039, free T4 5.71 and free T3 is 8.13 Prior hospitalist discussed with on-call mud tank operator in [place] and suggested to restart methimazole at 2.5 mg daily and monitor CBC and GI consult for diarrhea Monitor CBC continue methimazole Needs repeat thyroid function tests in 2 to 3 weeks as outpatient Needs follow-up with endocrinology upon discharge (7) Thrombocytopenia: Secondary to hepatic carcinoma/cirrhosis monitor Pancytopenia Antineoplastic chemotherapy induced pancytopenia DVT prophylaxis SCDs Re: Thrombocytopenia CODE STATUS Full Code Disposition PT OT prior to discharge Admission and Anticipated Discharge Date Admission Date: December 07, 2020 Subjective Patient is seen and examined at bedside Reports having an episode of nausea/vomiting this morning Continues to have diarrhea Poor oral intake Denies chest pain, SOB, dizziness, abd pain Review of Systems Review of Systems: All systems reviewed & are unremarkable except as noted in HPI & below Physical Exam Physical Exam: Physical Exam: Vitals signs as noted above General Appearance:Moderately built and nourished, no apparent distress, Chronic ill appearing Head: normocephalic, Atraumatic Eyes: normal inspection, EOMI Neck: supple, Trachea midline Respiratory/Chest: Coarse breath sounds, CTA, No accessory muscle use Cardiovascular: S1, S2, No murmur, +Tachycardia Abdomen/GI:Soft, Non tender, Bowel sounds present Extremities/Musculoskeletal:normal inspection, 1+ B/L LE edema Neurologic/Psych:AAOX3, grossly no focal neurological deficits Skin: normal color, warm Results & Data Results & Data ([facility]) Vital Signs (Past 12 Hours) Vital Signs Temp Pulse Resp BP Pulse Ox 12/13/20 07:22 36.5 C 100 H 18 155/84 H 94 Laboratory Results Short CBC 12/13/20 Range/Units 05:33 WBC 2.23 L (4.8-10.8) K/uL Hgb 15.2 (14.0-18.0) g/dL Hct 43.8 (42-52) % Plt Count 42 L (130-400) K/uL BMP 12/13/20 05:33 Sodium 140 Potassium 3.5 Chloride 108 H Carbon Dioxide 27 BUN 21 H Creatinine 0.91 Glucose 120 H Calcium 8.7 (1) Diarrhea Diarrhea type: unspecified type Qualified Code(s): R19.7 - Diarrhea, unspecified (2) Urinary tract infection Hematuria presence: without hematuria Urinary tract infection type: site unspecified Qualified Code(s): N39.0 - Urinary tract infection, site not specified
--- NOTE | 2020-12-13 13:48 | XRay Report ---
XR KUB/Abdomen 1 view CLINICAL HISTORY: nausea, vomiting COMPARISON STUDY: 12/07/2020 FINDINGS: There is gas present within nondilated small bowel and colonic loops. There are surgical cl ips within the right upper quadrant. There are no calcifications suspicious for urinary tract calculi . IMPRESSION: Nonobstructive bowel gas pattern. ACT 112: Negative or not required by law. Electronically signed by: Shahzad Jensen M.D. 12/13/2020 1:46 PM
[2020-12-14] MEDS: LOPERAMIDE HCL 2 MG CAP PO PRN ×2 (06:02→15:05)
[2020-12-14] MEDS: oxyCODONE HCL IR 5 MG TAB (IMMEDIATE RELEASE) PO PRN ×3 (06:02→21:24)
[2020-12-14] MEDS ORDERED: oxyCODONE HCL IR 5 MG TAB (IMMEDIATE RELEASE) PO PRN (06:06)
[2020-12-14 06:50] LABS: Hematocrit (blood only) 40.9 % (42-52); Hemoglobin 14.1 g/dL (14.0-18.0); Mean Corpuscular Hemoglobin 31.1 pg (25-34); Mean Corpuscular Hgb Conc 34.5 g/dL (32-36); Mean Corpuscular Volume 90.1 fL (80-100); RDW Coefficient of Variation 19.5 % (11.5-14.5); Red Blood Count 4.54 M/uL (4.7-6.1); White Blood Count 2.07 K/uL (4.8-10.8)
[2020-12-14 06:58] LABS: Mean Platelet Volume 10.5 fL (7.4-10.4); Platelet Count 42 K/uL (130-400)
[2020-12-14 07:23] LABS: BUN Creatinine Ratio 29.6 (10-20); Calcium 8.2 mg/dl (8.5-10.1); Creatinine Clr Calc Pharmacy 99.2 ml/min; Est GFR (African American) 105.5; Potassium 3.7 mmol/L (3.5-5.1)
[2020-12-14 07:32] LABS: Basophils # (auto) 0.01 K/uL (0-0.2); Basophils % (auto) 0.5 %; Eosinophils # (auto) 0.23 K/uL (0-0.5); Eosinophils % (auto) 11.1 %; Lymphocytes # (auto) 0.53 K/uL (1.2-3.4); Lymphocytes % (auto) 25.6 %; Monocytes # (auto) 0.29 K/uL (0.11-0.59); Neutrophils # (auto) 1.01 K/uL (1.4-6.5); Neutrophils % (auto) 48.8 %
[2020-12-14] MEDS: FAMOTIDINE 20 MG TAB PO SCH ×2 (07:41→08:15)
[2020-12-14] MEDS: CHOLESTYRAMINE LIGHT 4 GM PKT PO SCH ×2 (08:14→22:29)
[2020-12-14] MEDS: PSYLLIUM 58.6% POWDER PACKET PO SCH ×2 (08:14→11:06)
[2020-12-14] MEDS: D5W AND NSS 1,000 ML IV SCH (08:15)
[2020-12-14] MEDS: amLODIPine BESYLATE 5 MG TAB PO SCH (08:15)
[2020-12-14] MEDS: lisinopril 2.5 MG TAB PO SCH (08:16)
[2020-12-14] MEDS: THIAMINE HCL 100 MG TAB PO SCH (08:16)
[2020-12-14] MEDS: methIMAzole 5 MG TABLET PO SCH (08:16)
[2020-12-14] MEDS: TAMSULOSIN HCL 0.4 MG CAP PO SCH (08:16)
[2020-12-14] MEDS ORDERED: FAMOTIDINE 10 MG TABLET PO PRN (10:10)
[2020-12-14] MEDS: PANTOprazole 40 MG TAB PO SCH (11:06)
--- NOTE | 2020-12-14 12:35 | Hospitalist Progress Note ---
Date of Service December 14, 2020 Assessment & Plan (1) Diarrhea: Ongoing Nausea, diarrhea DD: Secondary to hyperthyroidism, immunotherapy KUB:Non-obstructed abdominal bowel gas pattern. Stool culture negative Stool for C. difficile negative Appreciate GI input Continue Imodium as needed Patient refusing Questran Continue gentle IV fluids [employer] Accounts Manager consulted Continue thiamine to minimize refeeding syndrome Added Metamucil Full liquid diet, advance as tolerated Started on PPI (2) Weakness: Secondary to comorbidities PT OT (3) Urinary tract infection: UTI Ruled out Urine culture negative IV Rocephin discontinued (4) Hepatocellular carcinoma: H/O Hepatocellular carcinoma diagnosed in 2016 status post partial hepatic excision in 2015 and followed by recurrence in February 2019 Was on Nexavar and Opdivo before and now has been on Cabometyx Follows with Oncologist at [facility] Antineoplastic medication held Needs follow-up with oncology, Dr. Gómez upon discharge (5) Hepatitis C: History of hepatitis C (6) Hyperthyroidism: Hyperthyroidism Tachycardia and diarrhea likely secondary to hyperthyroidism TSH of 0.039, free T4 5.71 and free T3 is 8.13 Prior hospitalist discussed with on-call tissue coordinator in [place] and suggested to restart methimazole at 2.5 mg daily and monitor CBC and GI consult for diarrhea Monitor CBC continue methimazole Needs follow-up with endocrinology upon discharge Will recheck Thyroid function test tomorrow (7) Thrombocytopenia: Secondary to hepatic carcinoma/cirrhosis monitor Pancytopenia Antineoplastic chemotherapy induced pancytopenia DVT prophylaxis SCDs Re: Thrombocytopenia CODE STATUS Full Code Disposition PT OT prior to discharge Admission and Anticipated Discharge Date Admission Date: December 07, 2020 Subjective Patient is seen and examined at bedside States having heartburn Reports chronic low back pain Ulcers reports having nausea, diarrhea and intolerance to solid food Oral intake remains poor Denies chest pain, SOB, dizziness, abd pain, vomiting Review of Systems Review of Systems: All systems reviewed & are unremarkable except as noted in HPI & below Physical Exam Physical Exam: Physical Exam: Vitals signs as noted above General Appearance:Moderately built and nourished, no apparent distress, Chronic ill appearing Head: normocephalic, Atraumatic Eyes: normal inspection, EOMI Neck: supple, Trachea midline Respiratory/Chest: Coarse breath sounds, CTA, No accessory muscle use Cardiovascular: S1, S2, No murmur, +Tachycardia Abdomen/GI:Soft, Non tender, Bowel sounds present Extremities/Musculoskeletal:normal inspection, 1+ B/L LE edema Neurologic/Psych:AAOX3, grossly no focal neurological deficits Skin: normal color, warm Results & Data Results & Data ([facility]) Vital Signs (Past 12 Hours) Vital Signs Temp Pulse Resp BP Pulse Ox 12/14/20 07:40 36.8 C 95 H 20 132/77 93 Laboratory Results Short CBC 12/14/20 Range/Units 06:29 WBC 2.07 L (4.8-10.8) K/uL Hgb 14.1 (14.0-18.0) g/dL Hct 40.9 L (42-52) % Plt Count 42 L (130-400) K/uL BMP 12/14/20 06:29 Sodium 143 Potassium 3.7 Chloride 111 H Carbon Dioxide 29 BUN 22 H Creatinine 0.75 Glucose 110 H Calcium 8.2 L (1) Diarrhea Diarrhea type: unspecified type Qualified Code(s): R19.7 - Diarrhea, unspecified (2) Urinary tract infection Hematuria presence: without hematuria Urinary tract infection type: site unspecified Qualified Code(s): N39.0 - Urinary tract infection, site not specified
[2020-12-14] MEDS: ONDANSETRON INJ 2 MG/ML 2 ML VIAL IV PRN (22:23)
[2020-12-15 06:37] LABS: Hematocrit (blood only) 38.8 % (42-52); Hemoglobin 13.4 g/dL (14.0-18.0); Mean Corpuscular Hemoglobin 31.2 pg (25-34); Mean Corpuscular Hgb Conc 34.5 g/dL (32-36); Mean Corpuscular Volume 90.2 fL (80-100); RDW Coefficient of Variation 19.7 % (11.5-14.5); RDW Standard Deviation 64.1 fL (36.4-46.3); White Blood Count 1.85 K/uL (4.8-10.8)
[2020-12-15] MEDS: ONDANSETRON INJ 2 MG/ML 2 ML VIAL IV PRN ×2 (06:44→17:40)
[2020-12-15 06:57] LABS: Platelet Count 38 K/uL (130-400)
[2020-12-15 07:12] LABS: BUN Creatinine Ratio 31.3 (10-20); Creatinine Clr Calc Pharmacy 97.9 ml/min; Est GFR (African American) 104.9; Est GFR (Non-African American) 90.5; Potassium 3.7 mmol/L (3.5-5.1)
[2020-12-15 07:24] LABS: T4 Free Thyroxine 4.42 ng/dl (0.8-1.6); Thyroid Stimulating Hormone 0.029 uIu/ml (0.300-4.500)
[2020-12-15 07:49] LABS: Basophils # (auto) 0.01 K/uL (0-0.2); Basophils % (auto) 0.5 %; Eosinophils # (auto) 0.25 K/uL (0-0.5); Eosinophils % (auto) 13.5 %; Lymphocytes # (auto) 0.58 K/uL (1.2-3.4); Lymphocytes % (auto) 31.4 %; Monocytes # (auto) 0.32 K/uL (0.11-0.59); Monocytes % (auto) 17.3 %; Neutrophils # (auto) 0.69 K/uL (1.4-6.5); Neutrophils % (auto) 37.3 %
[2020-12-15] MEDS: D5W AND NSS 1,000 ML IV SCH (08:27)
[2020-12-15] MEDS: PROMETHAZINE HCL 12.5 MG in SODIUM CHLORIDE 0.9% 50 ML IV PRN ×2 (09:02→21:12)
[2020-12-15] MEDS: methIMAzole 5 MG TABLET PO SCH ×2 (10:20→21:12)
[2020-12-15] MEDS: lisinopril 2.5 MG TAB PO SCH (10:20)
[2020-12-15] MEDS: TAMSULOSIN HCL 0.4 MG CAP PO SCH (10:20)
[2020-12-15] MEDS: PANTOprazole 40 MG TAB PO SCH (10:20)
[2020-12-15] MEDS: THIAMINE HCL 100 MG TAB PO SCH (10:20)
[2020-12-15] MEDS: amLODIPine BESYLATE 5 MG TAB PO SCH (10:21)
[2020-12-15] MEDS: LOPERAMIDE HCL 2 MG CAP PO PRN (10:21)
[2020-12-15] MEDS: PSYLLIUM 58.6% POWDER PACKET PO SCH (10:21)
[2020-12-15] MEDS: oxyCODONE HCL IR 5 MG TAB (IMMEDIATE RELEASE) PO PRN ×2 (10:21→21:28)
[2020-12-15] MEDS: CHOLESTYRAMINE LIGHT 4 GM PKT PO SCH ×2 (10:23→20:31)
[2020-12-15] MEDS ORDERED: methIMAzole 5 MG TABLET PO ONE (12:11)
[2020-12-15] MEDS: PROPRANOLOL HCL 10 MG TAB PO SCH ×2 (14:03→21:12)
--- NOTE | 2020-12-15 14:09 | CT Scan Report ---
ABDOMEN AND PELVIS CT WITHOUT CONTRAST CT DOSE: 587.42 mGy.cm HISTORY: Nausea, Vomiting, diarrhea TECHNIQUE: Multiaxial CT images of the abdomen and pelvis were performed without contrast. A dose lo wering technique was utilized adhering to the principles of ALARA. COMPARISON STUDY: None. FINDINGS: There is a moderate right pleural effusion. Right basilar consolidation favors compressive atelectasis from the pleural effusion. No pneumoperitoneum. No pneumatosis. No suspicious lytic or bl astic osseous lesions. Old, healed left-sided rib fractures. Linear calcification seen within the pos terior segment of the right hepatic lobe with mild capsular retraction. This favors posttreatment emb olization/changes. Cholecystectomy. Evaluation for a liver mass is difficult due to the lack of intra venous contrast. There is an ill-defined area of heterogeneity within the caudate lobe of the liver p osterior to the intrahepatic IVC. This is best seen on image 93 and measures approximately 3.5 cm. Th is appears to extend into the right iván of the diaphragm as seen on image 109. This is concerning fo r a hepatic mass and/or metastatic disease. No definite splenic masses identified. Normal appearing u nenhanced pancreas and left adrenal gland. No hydronephrosis. Mild bilateral perinephric edema which may be chronic. There is right-sided abdominal wall skin thickening and subcutaneous edema. There is enlarged and heterogeneous mass within the right adrenal gland measuring 6.8 cm. There is a single en larged and heterogeneous retrocaval lymph node measuring 3 cm. This results in mild anterior displace ment of the IVC. Small fat-containing midline ventral hernias are noted. Normal bladder. Suboptimal e valuation for bowel pathology due to the lack of intravenous and oral contrast. However, there is no definite bowel wall thickening or obstruction. Fluid-filled colon and small bowel. Trace fluid along the right paracolic gutter. IMPRESSION: 1. Moderate right pleural effusion. 2. Linear calcification seen within the posterior segment of the right hepatic lobe mild capsular ret raction. This favors posttreatment embolization/changes. 3. There is a 3.5 cm area of heterogeneity within the caudate lobe of the liver posterior to the intr ahepatic IVC. This heterogeneous soft tissue appears to extend into the right iván of the diaphragm a nd is concerning for neoplasm/metastatic disease. 4. A 6.8 cm heterogeneous right adrenal gland mass and an enlarged retrocaval lymph node also consist ent with metastatic disease. 5. Suboptimal evaluation for bowel pathology due to the lack of intravenous and oral contrast. Howeve r, there is no definite bowel wall thickening or obstruction 6. Nondilated fluid-filled large and small bowel. This can be seen in the setting of a gastroenteriti s/diarrheal illness. 7. Skin thickening and subcutaneous edema within the right lateral abdominal wall. 8. Additional findings as described above ACT 112: Negative or not required by law. Electronically signed by: Jhonathan Sanchez M.D. 12/15/2020 2:07 PM
--- NOTE | 2020-12-15 14:51 | Hospitalist Progress Note ---
Date of Service December 15, 2020 Assessment & Plan (1) Diarrhea: Ongoing Nausea, diarrhea DD: Secondary to hyperthyroidism, immunotherapy --CT ABD:Linear calcification seen within the posterior segment of the right hepatic lobe mild capsular retraction. This favors posttreatment embolizati on/changes. There is a 3.5 cm area of heterogeneity within the caudate lobe of the liver posterior to the intrahepatic IVC. This heterogeneous soft tissue appears to extend into the right iván of the diaphragm and is concerning for neoplasm/metastatic disease. A 6.8 cm heterogeneous right adrenal gland mass and an enlarged retrocaval lymph node also consistent with metastatic disease. Suboptimal evaluation for bowel pathology due to the lack of intravenous and oral contrast. However, there is no definite bowel wall thickening or obstruction. Nondilated fluid-filled large and small bowel. This can be seen in the setting of a gastroenteritis/diarrheal illness. Skin thickening and subcutaneous edema within the right lateral abdominal wall. -KUB:Non-obstructed abdominal bowel gas pattern. Stool culture negative Stool for C. difficile negative Appreciate GI input Continue Imodium as needed Patient refusing Questran Received gentle IV fluids [employer] Supervisor consulted Continue thiamine to minimize refeeding syndrome Added Metamucil Full liquid diet, advance as tolerated Continue PPI Clinically no much improvement from yesterday Right Pleural Effusion ? Malignant effusion CT showed Moderate right pleural effusion Saturating well on room air Consult Pulmonology for possible thoracentesis (2) Weakness: Secondary to comorbidities PT OT (3) Urinary tract infection: UTI Ruled out Urine culture negative IV Rocephin discontinued (4) Hepatocellular carcinoma: H/O Hepatocellular carcinoma diagnosed in 2016 status post partial hepatic excision in 2016 and followed by recurrence in February 2019 Was on Nexavar and Opdivo before and now has been on Cabometyx Follows with Oncologist at [facility] Antineoplastic medication held Needs follow-up with oncology, Dr. Gómez upon discharge (5) Hepatitis C: History of hepatitis C (6) Hyperthyroidism: Hyperthyroidism Tachycardia and diarrhea likely secondary to hyperthyroidism TSH of 0.039, free T4 5.71 and free T3 is 8.13 Prior hospitalist discussed with on-call varnisher apprentice in [place] and suggested to restart methimazole at 2.5 mg daily and monitor CBC and GI consult for diarrhea Repeat TSH: 0.029, Free T4:4.[address]Madiha Downing on 12/15/20: Advised to increase methimazole to 5 mg twice daily Monitor CBC, LFTs daily given HCC Plan to hold methimazole if LFTs 3 times upper limit of normal Start on propranolol 10 mg 3 times daily Recheck free T4, free T3 on 12/17/20 and discuss with Endo for further instructions Needs follow-up with endocrinology upon discharge (7) Thrombocytopenia: Secondary to hepatic carcinoma/cirrhosis monitor Pancytopenia Antineoplastic chemotherapy induced pancytopenia Follows with oncology as outpatient Check peripheral smear DVT prophylaxis SCDs Re: Thrombocytopenia CODE STATUS Full Code Disposition PT OT prior to discharge Admission and Anticipated Discharge Date Admission Date: December 07, 2020 Subjective Patient is seen and examined at bedside States having nausea associated with vomiting this morning Diarrhea only slightly improved CT suggestive of moderate right pleural effusion Discussed with endocrinology today Continues to have very poor oral intake Denies chest pain, SOB, dizziness, abd pain Review of Systems Review of Systems: All systems reviewed & are unremarkable except as noted in HPI & below Physical Exam Physical Exam: Physical Exam: Vitals signs as noted above General Appearance:Moderately built and nourished, no apparent distress, Chronic ill appearing Head: normocephalic, Atraumatic Eyes: normal inspection, EOMI Neck: supple, Trachea midline Respiratory/Chest: Decreased right breath sounds, Cardiovascular: S1, S2, No murmur, +Tachycardia Abdomen/GI:Soft, Non tender, Bowel sounds present Extremities/Musculoskeletal:normal inspection, 1+ B/L LE edema Neurologic/Psych:AAOX3, grossly no focal neurological deficits Skin: normal color, warm Results & Data Results & Data ([place]) Vital Signs (Past 12 Hours) Vital Signs Temp Pulse Resp BP Pulse Ox 12/15/20 07:12 36.5 C 102 H 19 133/82 93 Laboratory Results Short CBC 12/15/20 Range/Units 06:03 WBC 1.85 L (4.8-10.8) K/uL Hgb 13.4 L (14.0-18.0) g/dL Hct 38.8 L (42-52) % Plt Count 38 L (130-400) K/uL BMP 12/15/20 06:03 Sodium 143 Potassium 3.7 Chloride 111 H Carbon Dioxide 29 BUN 24 H Creatinine 0.76 Glucose 104 H Calcium 8.0 L (1) Urinary tract infection Hematuria presence: without hematuria Urinary tract infection type: site unspecified Qualified Code(s): N39.0 - Urinary tract infection, site not specified (2) Diarrhea Diarrhea type: unspecified type Qualified Code(s): R19.7 - Diarrhea, unspecified
[2020-12-16] MEDS: ONDANSETRON INJ 2 MG/ML 2 ML VIAL IV PRN ×3 (04:00→23:13)
[2020-12-16] MEDS ORDERED: ONDANSETRON 4 MG OD TAB PO STA (04:42)
[2020-12-16 06:12] LABS: Hematocrit (blood only) 41.3 % (42-52); Hemoglobin 14.4 g/dL (14.0-18.0); Mean Corpuscular Hemoglobin 31.3 pg (25-34); Mean Corpuscular Hgb Conc 34.9 g/dL (32-36); Mean Corpuscular Volume 89.8 fL (80-100); RDW Coefficient of Variation 19.4 % (11.5-14.5); RDW Standard Deviation 62.9 fL (36.4-46.3)
[2020-12-16 06:14] LABS: Mean Platelet Volume 10.6 fL (7.4-10.4); Platelet Count 42 K/uL (130-400)
[2020-12-16 06:44] LABS: Albumin Level 2.3 gm/dl (3.4-5.0); Calcium 8.3 mg/dl (8.5-10.1); Creatinine Clr Calc Pharmacy 83.6 ml/min; Est GFR (African American) 98.3; Est GFR (Non-African American) 84.8; Potassium 3.7 mmol/L (3.5-5.1)
[2020-12-16 06:48] LABS: Bilirubin Direct 1.2 mg/dl (0-0.2); Bilirubin,Total 2.6 mg/dl (0.2-1); Total Protein 5.9 gm/dl (6.4-8.2)
[2020-12-16 07:31] LABS: Basophils # (auto) 0.01 K/uL (0-0.2); Basophils % (auto) 0.5 %; Eosinophils # (auto) 0.26 K/uL (0-0.5); Eosinophils % (auto) 12.4 %; Lymphocytes # (auto) 0.58 K/uL (1.2-3.4); Lymphocytes % (auto) 27.6 %; Monocytes # (auto) 0.23 K/uL (0.11-0.59); Neutrophils # (auto) 1.02 K/uL (1.4-6.5); Neutrophils % (auto) 48.5 %
[2020-12-16] MEDS: PROMETHAZINE HCL 12.5 MG in SODIUM CHLORIDE 0.9% 50 ML IV PRN ×2 (09:04→19:20)
[2020-12-16] MEDS: PSYLLIUM 58.6% POWDER PACKET PO SCH (09:10)
[2020-12-16] MEDS: lisinopril 2.5 MG TAB PO SCH (09:12)
[2020-12-16] MEDS: THIAMINE HCL 100 MG TAB PO SCH (09:12)
[2020-12-16] MEDS: methIMAzole 5 MG TABLET PO SCH ×2 (09:12→20:33)
[2020-12-16] MEDS: PANTOprazole 40 MG TAB PO SCH (09:12)
[2020-12-16] MEDS: TAMSULOSIN HCL 0.4 MG CAP PO SCH (09:12)
[2020-12-16] MEDS: amLODIPine BESYLATE 5 MG TAB PO SCH (09:12)
[2020-12-16] MEDS: PROPRANOLOL HCL 10 MG TAB PO SCH ×3 (09:12→20:33)
[2020-12-16] MEDS: CHOLESTYRAMINE LIGHT 4 GM PKT PO SCH ×2 (09:13→20:34)
[2020-12-16] MEDS: oxyCODONE HCL IR 5 MG TAB (IMMEDIATE RELEASE) PO PRN ×2 (09:31→23:13)
[2020-12-16] MEDS: LOPERAMIDE HCL 2 MG CAP PO PRN (09:31)
--- NOTE | 2020-12-16 14:00 | Hospitalist Progress Note ---
Date of Service December 16, 2020 Assessment & Plan (1) Diarrhea: Ongoing Nausea, diarrhea DD: Secondary to hyperthyroidism, immunotherapy, HCC --CT ABD:Linear calcification seen within the posterior segment of the right hepatic lobe mild capsular retraction. This favors posttreatment embol ization/changes. There is a 3.5 cm area of heterogeneity within the caudate lobe of the liver posterior to the intrahepatic IVC. This heterogeneous soft tissue appears to extend into the right iván of the diaphragm and is concerning for neoplasm/metastatic disease. A 6.8 cm heterogeneous right adrenal gland mass and an enlarged retrocaval lymph node also consistent with metastatic disease. Suboptimal evaluation for bowel pathology due to the lack of intravenous and oral contrast. However, there is no definite bowel wall thickening or obstruction. Nondilated fluid-filled large and small bowel. This can be seen in the setting of a gastroenteritis/diarrheal illness. Skin thickening and subcutaneous edema within the right lateral abdominal wall. -KUB:Non-obstructed abdominal bowel gas pattern. Stool culture negative Stool for C. difficile negative Appreciate GI input Continue Imodium as needed Patient refusing Questran Received gentle IV fluids Hot Baller consulted Continue thiamine to minimize refeeding syndrome Added Metamucil Full liquid diet, advance as tolerated Continue PPI Continue current management Right Pleural Effusion Likely Malignant effusion CT showed Moderate right pleural effusion Saturating well on room air Appreciate Pulmonology Input Plan for thoracentesis as a management white blood cell count, platelets improve (2) Weakness: Secondary to comorbidities PT OT (3) Urinary tract infection: UTI Ruled out Urine culture negative IV Rocephin discontinued (4) Hepatocellular carcinoma: H/O Hepatocellular carcinoma diagnosed in 2016 status post partial hepatic excision in 2016 and followed by recurrence in February 2019 Was on Nexavar and Opdivo before and now has been on Cabometyx Follows with Oncologist at [facility] Antineoplastic medication held Will discuss with [facility] Dr.Numan Espinal regarding prognosis and possible filgrastim use for Pancytopenia (5) Hepatitis C: History of hepatitis C (6) Hyperthyroidism: Hyperthyroidism Tachycardia and diarrhea likely secondary to hyperthyroidism TSH of 0.039, free T4 5.71 and free T3 is 8.13 Prior hospitalist discussed with on-call floor waxer in [place] and suggested to restart methimazole at 2.5 mg daily and monitor CBC and GI consult for diarrhea Repeat TSH: 0.029, Free T4:4.[address]Madiha Downing on 12/15/20: Advised to increase methimazole to 5 mg twice daily Monitor CBC, LFTs daily given HCC Plan to hold methimazole if LFTs 3 times upper limit of normal Start on propranolol 10 mg 3 times daily Recheck free T4, free T3 on 12/17/20 and discuss with Endo for further instructions Needs follow-up with endocrinology upon discharge (7) Thrombocytopenia: Secondary to hepatic carcinoma/cirrhosis monitor Pancytopenia Antineoplastic chemotherapy induced pancytopenia Follows with oncology as outpatient Peripheral smear: No evidence of myelodysplasia or other identifying cause Will discuss with [facility] Dr.Numan Espinal for possible need for filgrastim Monitor CBC daily DVT prophylaxis SCDs Re: Thrombocytopenia CODE STATUS Full Code Disposition PT OT prior to discharge Admission and Anticipated Discharge Date Admission Date: December 07, 2020 Subjective Patient is seen and examined at bedside Persistent nausea, vomiting, diarrhea Very poor oral intake Tachycardia improved Discussed with pulmonology today Denies chest pain, SOB, dizziness, abd pain Review of Systems Review of Systems: All systems reviewed & are unremarkable except as noted in HPI & below Physical Exam Physical Exam: Physical Exam: Vitals signs as noted above General Appearance:Moderately built and nourished, no apparent distress, Chronic ill appearing Head: normocephalic, Atraumatic Eyes: normal inspection, EOMI Neck: supple, Trachea midline Respiratory/Chest: Decreased right breath sounds Cardiovascular: S1, S2, No murmur, +Tachycardia Abdomen/GI:Soft, Non tender, Bowel sounds present Extremities/Musculoskeletal:normal inspection, 1+ B/L LE edema Neurologic/Psych:AAOX3, grossly no focal neurological deficits Skin: normal color, warm Results & Data Results & Data ([facility]) Vital Signs (Past 12 Hours) Vital Signs Temp Pulse Resp BP Pulse Ox 12/16/20 07:54 36.6 C 80 18 153/91 H 94 12/16/20 05:04 156/88 H Laboratory Results Short CBC 12/16/20 Range/Units 05:48 WBC 2.10 L (4.8-10.8) K/uL Hgb 14.4 (14.0-18.0) g/dL Hct 41.3 L (42-52) % Plt Count 42 L (130-400) K/uL BMP 12/16/20 05:48 Sodium 140 Potassium 3.7 Chloride 109 H Carbon Dioxide 27 BUN 27 H Creatinine 0.89 Glucose 103 H Calcium 8.3 L Liver Function 12/16/20 Range/Units 05:48 Total Bilirubin 2.6 H (0.2-1) mg/dl Direct Bilirubin 1.2 H (0-0.2) mg/dl AST 103 H (15-37) U/L ALT 88 H (12-78) U/L Alkaline Phosphatase 105 (45-117) U/L Albumin 2.3 L (3.4-5.0) gm/dl (1) Diarrhea Diarrhea type: unspecified type Qualified Code(s): R19.7 - Diarrhea, unspecified (2) Urinary tract infection Hematuria presence: without hematuria Urinary tract infection type: site unspecified Qualified Code(s): N39.0 - Urinary tract infection, site not specified
--- NOTE | 2020-12-16 14:12 | Pulmonary Consultation ---
Date of Consultation December 16, 2020 Assessment & Plan (1) Pleural effusion: Chest x-ray 12/07/2020 personally reviewed: Right-sided pleural effusion, left costophrenic and cardiophrenic angles are clean, CT abdomen pelvis 12/15/2020: Right-sided pleural effusion with associated atelectasis appreciated. No abdominal ascites. --Right-sided pleural effusion Patient had history of pleural effusion in the past which has been tapped with no malignancy Given the history of hepatocellular carcinoma and liver cirrhosis this could still be coming from liver cirrhosis/hepatocellular carcinoma even though patient has no ascites Patient is in no acute distress while laying on the bed flat. He does complain of shortness of breath on exertion --Shortness of breath Multifactorial Right-sided pleural effusion as well as generalized lethargy playing a role Covid 19 PCR, influenza A/B negative 12/12/2020 Plan: Thoracentesis to be done when the platelets are greater than 50 for 2 consecutive days Recommend hematology to see if the patient is a candidate for Filgastrim Consent was signed, witnessed and put in the chart Pulmonary will continue to follow. Please note the above document was generated using voice recognition software. It may contain grammatical, syntax or spelling errors.Any formal questions or concerns about the content, text or information contained within the body of this dictation should be directly addressed to the provider for clarification. (2) Pancytopenia: History of Present Illness Attending Physician: Froy Grangre MD History of Present Illness 75-year-old male past medical history of hepatocellular carcinoma with metastases to the lung, liver cirrhosis, esophageal varices without bleeding, history of hep C was admitted to the hospital because of nausea vomiting and diarrhea. Pulmonary were consulted because of right-sided pleural effusion At the time of examination patient states that he still nauseous and has been throwing up. He denies any issues with breathing when he is laying down but when he exerts he does get short of breath. Denies any cough, no chest pain, no headache, no dizziness. Poor appetite. Patient did state that he had thoracentesis done twice in the past which was negative for malignancy on the fluid. Social history: 29-papv-lyir smoking history quit long time ago, history of IV drug abuse. Allergies Allergy/AdvReac Type Severity Reaction Status Date / Time Penicillins Allergy Rash Verified 12/08/20 12:44 Home Medications Medication Instructions Recorded Confirmed Type amlodipine 5 mg PO DAILY 12/07/20 12/07/20 History cabozantinib [Cabometyx] 60 mg PO DIRECTED 12/07/20 12/07/20 History diclofenac sodium 1 ea TOPICAL DIRECTED 12/07/20 12/07/20 History hydroxyzine HCl 10 mg PO DIRECTED 12/07/20 12/07/20 History ondansetron 8 mg PO DIRECTED 12/07/20 12/07/20 History tamsulosin 0.4 mg PO DIRECTED 12/07/20 12/07/20 History Patient History Medical History (Updated 12/16/20 @ 14:08 by Antonietta Ovalles MD) Hepatitis C Hepatocellular carcinoma Pleural effusion, right Social History Smoking Status: Former smoker Hx Alcohol Use: Yes Alcohol type: beer Hx Substance Use: No Preferred Language: Maori Communication Ability: Effective Manager Contact Required: No Beliefs That Will Affect Care: None marital status: Single Current Living Situation: Family Current Living Situation Comment: Dtr Feels Safe at Home: Yes Safety Concerns: Feels Safe At This Time Assistive Devices: Glasses Review of Systems Review of Systems: All systems reviewed & are unremarkable except as noted in HPI & below Physical Exam Physical Exam: Constitutional: No acute distress, frail-appearing HEENT: EOMI, PERRLA Respiratory system: Decreased air entry on the right side, no wheeze, no rhonchi, no crackles CVS: S1-S2 positive, no murmurs or gallops Abdomen: Soft, nontender, nondistended, positive bowel sounds x4 Extremities: +2 pulses bilaterally radialis/ dorsalis pedis, no cyanosis, no edema Neuro: Awake alert oriented x3 Psych: Normal mood and affect G/U: No [place] Skin: no rashes, warm and dry Lymphatic: no cervical or axillary lymphadenopathy Results & Data Results & Data ([facility]) Vital Signs (Past 12 Hours) Vital Signs Temp Pulse Resp BP BP Pulse Ox 12/16/20 07:54 36.6 C 80 18 153/91 H 94 12/16/20 05:04 156/88 H 12/15/20 23:59 36.6 C 73 18 122/81 94 12/16/20 05:48 12/16/20 05:48 PG Care Time/CCT Total # of Minutes Spent Total Time Spent with Patient: Total time spent is greater than 50% in coordination of care (as documented) at patient's floor/unit and/or counseling patient: Coding Level of Care Code 85849 Initial Inpt Care Lvl 3 Diagnoses Pleural effusion J90 Pancytopenia D61.818
--- NOTE | 2020-12-16 14:17 | Communication Note ---
Date of Service: December 16, 2020 Methimazole likely contributing to leukopenia, thrombocytopenia. Discussed with Dr. Espinal. HCC--very poor prognosis. Does not recommend filgrastim at this time. Reasonable to consult palliative care to address goals of care. Will consult palliative care.
[2020-12-17] MEDS: LOPERAMIDE HCL 2 MG CAP PO PRN (02:34)
[2020-12-17] MEDS: PROMETHAZINE HCL 12.5 MG in SODIUM CHLORIDE 0.9% 50 ML IV PRN ×2 (02:35→09:19)
[2020-12-17 07:04] LABS: Hematocrit (blood only) 38.5 % (42-52); Hemoglobin 13.7 g/dL (14.0-18.0); Mean Corpuscular Hemoglobin 31.6 pg (25-34); Mean Corpuscular Hgb Conc 35.6 g/dL (32-36); Mean Corpuscular Volume 88.9 fL (80-100); RDW Coefficient of Variation 19.2 % (11.5-14.5); RDW Standard Deviation 62.5 fL (36.4-46.3); Red Blood Count 4.33 M/uL (4.7-6.1); White Blood Count 1.85 K/uL (4.8-10.8)
[2020-12-17 07:41] LABS: Albumin Level 2.2 gm/dl (3.4-5.0); BUN Creatinine Ratio 36.3 (10-20); Bilirubin Direct 1.1 mg/dl (0-0.2); Bilirubin,Total 2.2 mg/dl (0.2-1); Calcium 8.2 mg/dl (8.5-10.1); Est GFR (African American) 102.7; Est GFR (Non-African American) 88.6; Magnesium 1.9 mg/dl (1.8-2.4); Potassium 3.7 mmol/L (3.5-5.1); Total Protein 5.7 gm/dl (6.4-8.2)
[2020-12-17] MEDS: ONDANSETRON INJ 2 MG/ML 2 ML VIAL IV PRN ×2 (07:43→19:37)
[2020-12-17 07:45] LABS: T4 Free Thyroxine 4.94 ng/dl (0.8-1.6)
[2020-12-17] MEDS: oxyCODONE HCL IR 5 MG TAB (IMMEDIATE RELEASE) PO PRN ×2 (07:51→22:50)
[2020-12-17 08:12] LABS: Mean Platelet Volume 10.7 fL (7.4-10.4); Platelet Count 43 K/uL (130-400)
[2020-12-17 08:15] LABS: Basophils # (auto) 0.01 K/uL (0-0.2); Basophils % (auto) 0.5 %; Eosinophils # (auto) 0.24 K/uL (0-0.5); Lymphocytes # (auto) 0.57 K/uL (1.2-3.4); Lymphocytes % (auto) 30.8 %; Monocytes # (auto) 0.27 K/uL (0.11-0.59); Monocytes % (auto) 14.6 %; Neutrophils # (auto) 0.76 K/uL (1.4-6.5); Neutrophils % (auto) 41.1 %; Platelet Estimate Decreased (Normal); RBC Morphology Unremarkable
--- NOTE | 2020-12-17 09:46 | Palliative Care Consultation ---
Date of Consultation December 17, 2020 Assessment & Plan (1) Nausea & vomiting: Diarrhea seems to be improved but he is having nausea and vomiting despite odansetron and promethazine. Will add haldol oral concentrat as needed for dopaminergic receptor activity. (2) Palliative care encounter: I talked with Mr. Butterfield about how he is coping with his illness. He feels that if his nausea and diarrhea improved and he was able to eat that he would be doing well. He lives with his daughter, Aisha, but is considering moving to live with his other daughter. He feels that things are managable at home and preferred that I not call Aisha today. We discussed what his goals are. His hope is to feel well enough to go to the [facility] which is the thing that brings him the most pleasure. I asked him if he had ever considered what he would do if his cancer therapy was not effective and his response was to switch to another treatment regimen. At this time he does not see any limitations to his care and tells me that he has not and does not want to consider anything other than continuing treatment. Palliative care will follow peripherally. Thank you for allowing us to participate in his care. (3) Pancytopenia: (4) Hepatocellular carcinoma: (5) Pleural effusion: History of Present Illness Reason for Consultation: goals of care Requesting Physician: Dr. Granger Attending Physician: Julio Cesar Baer DO History of Present Illness 75 yo gentleman with history of hepatitis C and cirrhosis with esophageal varices was diagnosed with hepatocellular carcinoma in 2016. He had excision at that time but developed recurrence in 2019. He has been treated at [facility] with nexavar and opdivo and currently cabometyx. He has mets to lung with right pleural effusion and an adrenal mass on CT. He presented with weakness and diarrhea. He is noted to have pancytopenia and protein calorie malnutrition with albumin of 2.2. He is c/o nausea and has not been able to tolerate sips of fluids. He did have emesis during our visit. He had one loose BM this morning. His concern is being able to eat and regain his strength. He denies pain or dyspnea. Allergies Allergy/AdvReac Type Severity Reaction Status Date / Time Penicillins Allergy Rash Verified 12/08/20 12:44 Home Medications Medication Instructions Recorded Confirmed Type amlodipine 5 mg PO DAILY 12/07/20 12/07/20 History cabozantinib [Cabometyx] 60 mg PO DIRECTED 12/07/20 12/07/20 History diclofenac sodium 1 ea TOPICAL DIRECTED 12/07/20 12/07/20 History hydroxyzine HCl 10 mg PO DIRECTED 12/07/20 12/07/20 History ondansetron 8 mg PO DIRECTED 12/07/20 12/07/20 History tamsulosin 0.4 mg PO DIRECTED 12/07/20 12/07/20 History Patient History Medical History Hepatitis C Hepatocellular carcinoma Pleural effusion, right Social History Smoking Status: Former smoker Hx Alcohol Use: Yes Alcohol type: beer Hx Substance Use: No Preferred Language: Albanian Communication Ability: Effective 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 Beliefs That Will Affect Care: None marital status: Single Current Living Situation: Family Current Living Situation Comment: Dtr Feels Safe at Home: Yes Safety Concerns: Feels Safe At This Time Assistive Devices: Denture - Lower and Glasses Review of Systems Review of Systems: [place] Symptom Assessment Scale Pain 0/3 Nausea 3/3 Dyspnea 0/3 Fatigue 2/3 Drowsiness 1/3 Anxiety 0/3 Palliative Performance Score 50% Physical Exam Constitutional: + ill appearing ENMT: Mouth: + dry oral mucous membranes Respiratory: no labored breathing Cardiovascular: Extremities: no edema Musculoskeletal: Extremities: extremities normal to inspection Skin: pale Neurologic: no focal motor deficits Psychiatric: Orientation: oriented x 3 Results & Data ([facility]) Vital Signs (Past 12 Hours) Vital Signs Temp Pulse Pulse Resp BP BP Pulse Ox 12/17/20 08:00 97.9 F 79 20 138/86 20 L 12/16/20 23:07 97.7 F 78 20 129/76 94 PG Care Time/CCT Total # of Minutes Spent Total Time Spent with Patient: Total time spent is greater than 50% in coordination of care (as documented) at patient's floor/unit and/or counseling patient: Total time spent 60 minutes with more than 50% of time spent on symptom management and goals of care. Coding Level of Care Code 11351 Inpt Consult Level 3 Diagnoses Nausea & vomiting R11.2 Palliative care encounter Z51.5 Pancytopenia D61.818 Hepatocellular carcinoma C22.0 Pleural effusion J90
--- NOTE | 2020-12-17 10:02 | Pulmonology Progress Note ---
Date of Service December 17, 2020 Assessment & Plan (1) Pleural effusion: Chest x-ray 12/07/2020 personally reviewed: Right-sided pleural effusion, left costophrenic and cardiophrenic angles are clean, CT abdomen pelvis 12/15/2020: Right-sided pleural effusion with associated atelectasis appreciated. No abdominal ascites. --Right-sided pleural effusion Patient had history of pleural effusion in the past which has been tapped with no malignancy Given the history of hepatocellular carcinoma and liver cirrhosis this could still be coming from liver cirrhosis/hepatocellular carcinoma even though patient has no ascites Patient is in no acute distress while laying on the bed flat. He does complain of shortness of breath on exertion --Shortness of breath Multifactorial Right-sided pleural effusion as well as generalized lethargy playing a role Covid 19 PCR, influenza A/B negative 12/12/2020 Plan: Thoracentesis to be done when the platelets are greater than 50 for 2 consecutive days Recommend hematology to see if the patient is a candidate for Filgastrim Pulmonary will continue to follow. Please note the above document was generated using voice recognition software. It may contain grammatical, syntax or spelling errors.Any formal questions or concerns about the content, text or information contained within the body of this dictation should be directly addressed to the provider for clarification. (2) Pancytopenia: Admission and Anticipated Discharge Date Admission Date: December 07, 2020 Subjective Patient seen and examined at bedside. No acute distress. Patient was laying on the bed at the time of examination. Does complain of some abdominal discomfort. Does not complain of any shortness of breath while laying on the bed. When he has to go to the bathroom he does get some shortness of breath. Denies any hemoptysis, no cough, no phlegm. Denies any chest pain. Review of Systems Review of Systems: All systems reviewed & are unremarkable except as noted in Subjective Physical Exam Physical Exam: Constitutional: No acute distress, frail-appearing HEENT: EOMI, PERRLA Respiratory system: Decreased air entry on the right side, no wheeze, no rhonchi, no crackles CVS: S1-S2 positive, no murmurs or gallops Abdomen: Soft, nontender, nondistended, positive bowel sounds x4 Extremities: +2 pulses bilaterally radialis/ dorsalis pedis, no cyanosis, no edema Neuro: Awake alert oriented x3 Psych: Normal mood and affect G/U: No [place] Skin: no rashes, warm and dry Lymphatic: no cervical or axillary lymphadenopathy Results & Data Results & Data ([facility]) Vital Signs (Past 12 Hours) Vital Signs Temp Pulse Pulse Resp BP BP Pulse Ox 12/17/20 08:00 36.6 C 79 20 138/86 20 L 12/16/20 23:07 36.5 C 78 20 129/76 94 12/17/20 06:33 12/17/20 06:33 PG Care Time/CCT Total # of Minutes Spent Total Time Spent with Patient: Total time spent is greater than 50% in coordination of care (as documented) at patient's floor/unit and/or counseling patient: Coding Level of Care Code 04504 Subseq Hosp Care Lvl 2 Diagnoses Pleural effusion J90 Pancytopenia D61.818
[2020-12-17] MEDS: PROPRANOLOL HCL 10 MG TAB PO SCH ×3 (10:11→20:06)
[2020-12-17] MEDS: PANTOprazole 40 MG TAB PO SCH (10:11)
[2020-12-17] MEDS: amLODIPine BESYLATE 5 MG TAB PO SCH (10:11)
[2020-12-17] MEDS: THIAMINE HCL 100 MG TAB PO SCH (10:11)
[2020-12-17] MEDS: TAMSULOSIN HCL 0.4 MG CAP PO SCH (10:11)
[2020-12-17] MEDS: PSYLLIUM 58.6% POWDER PACKET PO SCH (10:12)
[2020-12-17] MEDS: methIMAzole 5 MG TABLET PO SCH ×2 (10:13→20:06)
[2020-12-17] MEDS: lisinopril 2.5 MG TAB PO SCH (10:13)
[2020-12-17] MEDS: CHOLESTYRAMINE LIGHT 4 GM PKT PO SCH ×2 (10:53→21:45)
--- NOTE | 2020-12-17 13:43 | Hospitalist Progress Note ---
Date of Service December 17, 2020 Assessment & Plan (1) Diarrhea: Ongoing Nausea, diarrhea DD: Secondary to hyperthyroidism, immunotherapy, HCC --CT ABD:Linear calcification seen within the posterior segment of the right hepatic lobe mild capsular retraction. This favors posttreatment embol ization/changes. There is a 3.5 cm area of heterogeneity within the caudate lobe of the liver posterior to the intrahepatic IVC. This heterogeneous soft tissue appears to extend into the right iván of the diaphragm and is concerning for neoplasm/metastatic disease. A 6.8 cm heterogeneous right adrenal gland mass and an enlarged retrocaval lymph node also consistent with metastatic disease. Suboptimal evaluation for bowel pathology due to the lack of intravenous and oral contrast. However, there is no definite bowel wall thickening or obstruction. Nondilated fluid-filled large and small bowel. This can be seen in the setting of a gastroenteritis/diarrheal illness. Skin thickening and subcutaneous edema within the right lateral abdominal wall. -KUB:Non-obstructed abdominal bowel gas pattern. Stool culture negative Stool for C. difficile negative Appreciate GI input Continue Imodium as needed Patient refusing Questran Received gentle IV fluids Child Development Consultant consulted try Banana flakes Continue thiamine to minimize refeeding syndrome Added Metamucil Full liquid diet, advance as tolerated Continue PPI Continue current management Right Pleural Effusion Likely Malignant effusion CT showed Moderate right pleural effusion Saturating well on room air Appreciate Pulmonology Input Plan for thoracentesis as a management white blood cell count, platelets improve (2) Weakness: Secondary to comorbidities PT OT (3) Urinary tract infection: UTI Ruled out Urine culture negative IV Rocephin discontinued (4) Hepatocellular carcinoma: H/O Hepatocellular carcinoma diagnosed in 2016 status post partial hepatic excision in 2016 and followed by recurrence in February 2019 Was on Nexavar and Opdivo before and now has been on Cabometyx Follows with Oncologist at [facility] Antineoplastic medication held [facility] Oncology Dr.Numan Espinal (5) Hepatitis C: History of hepatitis C (6) Hyperthyroidism: Hyperthyroidism Tachycardia and diarrhea likely secondary to hyperthyroidism TSH of 0.039, free T4 5.71 and free T3 is 8.13 Prior hospitalist discussed with on-call laborer [employer] in [place] and suggested to restart methimazole at 2.5 mg daily and monitor CBC and GI consult for diarrhea Repeat TSH: 0.029, Free T4:4.[address]Madiha Downing on 12/15/20: Advised to increase methimazole to 5 mg twice daily Monitor CBC, LFTs daily given HCC Plan to hold methimazole if LFTs 3 times upper limit of normal Propranolol 10 mg 3 times daily Needs follow-up with endocrinology upon discharge (7) Thrombocytopenia: Secondary to hepatic carcinoma/cirrhosis monitor 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 Oncology Dr.Numan Espinal for possible need for filgrastim Monitor CBC daily DVT prophylaxis SCDs Re: Thrombocytopenia CODE STATUS Full Code Disposition PT OT prior to discharge labs checked Await Lung Tap ROS-No Headache, No Visual Changes, No Nausea, No Vomiting, No Fever, No Chills, No Neck Pain or Stiffness, No Chest Pain, No Palpitations, No SOB, No MONTALVO, No Cough, No Sputum, No Wheezing, No Abdominal Pain, No Diarrhea, No Hematemesis, No Hemoptysis, No Unexpected Weight Loss, No Flank pain, No Melena, No Hematochezia, No Frequency, No Urgency, No Burning, No Hematuria, No Rashes, No Diaphoresis. Appetite is Normal Physical Exam Gen-AAO x 3, NAD, Afebrile, weak and tired Head-NCAT, EOMI, PERRLA, Anicteric Sclera, No Posterior Pharyngeal Erythema Neck-Supple, No JVD, No Thyromegaly, No Masses, No LAD, No Bruits Lungs-Clear to Auscultation Bilaterally, No Rales, No Rhonchi, No Wheezing, No Crepitus Chest-No S4, +S1, +S2, No S3, No Murmurs, No Rubs, No Gallops, No Ectopy Abdomen-Soft, Bowel Sounds Present, Non Tender, Non Distended, No Hepatomegaly, No Splenomegaly, No Palpable Masses, No Rebound, No Rigidity, No Guarding Musculoskeletal-Full Range of Motion Bilaterally, No CVAT Extremities-No Cyanosis, No Clubbing, No Edema Nuero-Cranial Nerves II-XII grossly intact, Motor WNL, DTRs WNL, Strength WNL, Non Focal Psych-Normal Mood Admission and Anticipated Discharge Date Admission Date: December 07, 2020 Results & Data Results & Data ([facility]) Vital Signs (Past 12 Hours) Vital Signs Temp Pulse Resp BP 12/17/20 08:00 36.6 C 79 20 138/86 (1) Diarrhea Diarrhea type: unspecified type Qualified Code(s): R19.7 - Diarrhea, unspecified (2) Urinary tract infection Hematuria presence: without hematuria Urinary tract infection type: site unspecified Qualified Code(s): N39.0 - Urinary tract infection, site not specified
[2020-12-17] MEDS ORDERED: HALOPERIDOL ORAL SOLN 2 MG/ML PO PRN (14:13)
[2020-12-18] MEDS: ONDANSETRON INJ 2 MG/ML 2 ML VIAL IV PRN (06:11)
[2020-12-18 06:24] LABS: Hematocrit (blood only) 38.9 % (42-52); Mean Corpuscular Hemoglobin 32.2 pg (25-34); Mean Corpuscular Volume 89.4 fL (80-100); Red Blood Count 4.35 M/uL (4.7-6.1); White Blood Count 2.19 K/uL (4.8-10.8)
[2020-12-18 06:26] LABS: Mean Platelet Volume 11.6 fL (7.4-10.4); Platelet Count 53 K/uL (130-400)
[2020-12-18 07:08] LABS: Albumin Level 2.3 gm/dl (3.4-5.0); BUN Creatinine Ratio 29.8 (10-20); Calcium 8.8 mg/dl (8.5-10.1); Creatinine Clr Calc Pharmacy 74.4 ml/min; Est GFR (African American) 86.2; Est GFR (Non-African American) 74.3; Potassium 3.8 mmol/L (3.5-5.1)
[2020-12-18 07:09] LABS: Albumin Globulin Ratio 0.6 (0.9-2); Bilirubin,Total 2.1 mg/dl (0.2-1); Globulin 3.9 gm/dl (2.5-4.0); Total Protein 6.2 gm/dl (6.4-8.2)
[2020-12-18] MEDS: PSYLLIUM 58.6% POWDER PACKET PO SCH (08:37)
[2020-12-18] MEDS: oxyCODONE HCL IR 5 MG TAB (IMMEDIATE RELEASE) PO PRN ×3 (08:55→21:42)
[2020-12-18] MEDS: PROMETHAZINE HCL 12.5 MG in SODIUM CHLORIDE 0.9% 50 ML IV PRN (08:56)
[2020-12-18] MEDS: BISMUTH SUBSALICYLATE SUSP PO PRN ×2 (08:56→21:37)
[2020-12-18] MEDS: lisinopril 2.5 MG TAB PO SCH (08:59)
[2020-12-18] MEDS: PROPRANOLOL HCL 10 MG TAB PO SCH ×3 (08:59→21:38)
[2020-12-18] MEDS: methIMAzole 5 MG TABLET PO SCH ×2 (08:59→21:38)
[2020-12-18] MEDS: PANTOprazole 40 MG TAB PO SCH (09:00)
[2020-12-18] MEDS: CHOLESTYRAMINE LIGHT 4 GM PKT PO SCH ×2 (09:00→21:43)
[2020-12-18] MEDS: amLODIPine BESYLATE 5 MG TAB PO SCH (09:00)
[2020-12-18] MEDS: TAMSULOSIN HCL 0.4 MG CAP PO SCH (09:00)
[2020-12-18] MEDS: THIAMINE HCL 100 MG TAB PO SCH (09:00)
--- NOTE | 2020-12-18 09:25 | Pulmonology Progress Note ---
Date of Service December 18, 2020 Assessment & Plan (1) Pleural effusion: Chest x-ray 12/07/2020 personally reviewed: Right-sided pleural effusion, left costophrenic and cardiophrenic angles are clean, CT abdomen pelvis 12/15/2020: Right-sided pleural effusion with associated atelectasis appreciated. No abdominal ascites. --Right-sided pleural effusion Patient had history of pleural effusion in the past which has been tapped with no malignancy Given the history of hepatocellular carcinoma and liver cirrhosis this could still be coming from liver cirrhosis/hepatocellular carcinoma even though patient has no ascites Patient is in no acute distress while laying on the bed flat. He does complain of shortness of breath on exertion --Shortness of breath Multifactorial Right-sided pleural effusion as well as generalized lethargy from malnutrition and cancer playing a role Covid 19 PCR, influenza A/B negative 12/12/2020 Plan: Thoracentesis to be done when the platelets are greater than 50 for 2 consecutive days Pulmonary will continue to follow. Please note the above document was generated using voice recognition software. It may contain grammatical, syntax or spelling errors.Any formal questions or concerns about the content, text or information contained within the body of this dictation should be directly addressed to the provider for clarification. (2) Pancytopenia: Admission and Anticipated Discharge Date Admission Date: December 07, 2020 Subjective Patient seen and examined at bedside. No acute distress. She still complains of nausea. Mild abdominal discomfort. Shortness of breath on exertion. No headache, no dizziness. Review of Systems Review of Systems: All systems reviewed & are unremarkable except as noted in Subjective Physical Exam Physical Exam: Constitutional: No acute distress, frail-appearing HEENT: EOMI, PERRLA Respiratory system: Decreased air entry on the right side, no wheeze, no r honchi, no crackles CVS: S1-S2 positive, no murmurs or gallops Abdomen: Soft, nontender, nondistended, positive bowel sounds x4 Extremities: +2 pulses bilaterally radialis/ dorsalis pedis, no cyanosis, no edema Neuro: Awake alert oriented x3 Psych: Normal mood and affect G/U: No [place] Skin: no rashes, warm and dry Lymphatic: no cervical or axillary lymphadenopathy Results & Data Results & Data ([facility]) Vital Signs (Past 12 Hours) Vital Signs Temp Pulse Resp BP BP Pulse Ox 12/18/20 07:58 36.2 C L 78 16 163/94 H 94 12/17/20 23:31 36.4 C L 77 16 123/81 94 12/18/20 05:52 12/18/20 05:52 PG Care Time/CCT Total # of Minutes Spent Total Time Spent with Patient: Total time spent is greater than 50% in coordination of care (as documented) at patient's floor/unit and/or counseling patient: Coding Level of Care Code 01625 Subseq Hosp Care Lvl 2 Diagnoses Pleural effusion J90 Pancytopenia D61.818
[2020-12-18] MEDS ORDERED: PHYTONADIONE 2.5 MG in SODIUM CHLORIDE 0.9% 50 ML IV ONE (09:45)
[2020-12-18] MEDS ORDERED: PROCHLORPERAZINE 10 MG in SYRINGE 8 ML IV PRN (10:36)
--- NOTE | 2020-12-18 10:38 | Hospitalist Progress Note ---
Date of Service December 18, 2020 Assessment & Plan (1) Diarrhea: Ongoing Nausea, diarrhea DD: Secondary to hyperthyroidism, immunotherapy, HCC --CT ABD:Linear calcification seen within the posterior segment of the right hepatic lobe mild capsular retraction. This favors posttreatment embol ization/changes. There is a 3.5 cm area of heterogeneity within the caudate lobe of the liver posterior to the intrahepatic IVC. This heterogeneous soft tissue appears to extend into the right iván of the diaphragm and is concerning for neoplasm/metastatic disease. A 6.8 cm heterogeneous right adrenal gland mass and an enlarged retrocaval lymph node also consistent with metastatic disease. Suboptimal evaluation for bowel pathology due to the lack of intravenous and oral contrast. However, there is no definite bowel wall thickening or obstruction. Nondilated fluid-filled large and small bowel. This can be seen in the setting of a gastroenteritis/diarrheal illness. Skin thickening and subcutaneous edema within the right lateral abdominal wall. -KUB:Non-obstructed abdominal bowel gas pattern. Stool culture negative Stool for C. difficile negative Appreciate GI input Continue Imodium as needed Patient refusing Questran Received gentle IV fluids Open Hearth Worker consulted try Banana flakes Continue thiamine to minimize refeeding syndrome Added Metamucil Full liquid diet, advance as tolerated Continue PPI Continue current management Right Pleural Effusion Likely Malignant effusion CT showed Moderate right pleural effusion Saturating well on room air Appreciate Pulmonology Input Plan for thoracentesis platelets 53 today (2) Weakness: Secondary to comorbidities PT OT (3) Urinary tract infection: UTI Ruled out Urine culture negative IV Rocephin discontinued (4) Hepatocellular carcinoma: H/O Hepatocellular carcinoma diagnosed in 2016 status post partial hepatic excision in 2016 and followed by recurrence in February 2019 Was on Nexavar and Opdivo before and now has been on Cabometyx Follows with Oncologist at [facility] Antineoplastic medication held [facility] Oncology Dr.Numan Espinal (5) Hepatitis C: History of hepatitis C (6) Hyperthyroidism: Hyperthyroidism Tachycardia and diarrhea likely secondary to hyperthyroidism TSH of 0.039, free T4 5.71 and free T3 is 8.13 Prior hospitalist discussed with on-call ordnance officer in [place] and suggested to restart methimazole at 2.5 mg daily and monitor CBC and GI consult for diarrhea Repeat TSH: 0.029, Free T4:4.[address]Madiha Downing on 12/15/20: Advised to increase methimazole to 5 mg twice daily Monitor CBC, LFTs daily given HCC Plan to hold methimazole if LFTs 3 times upper limit of normal Propranolol 10 mg 3 times daily Needs follow-up with endocrinology upon discharge (7) Thrombocytopenia: Secondary to hepatic carcinoma/cirrhosis monitor Pancytopenia Antineoplastic chemotherapy induced pancytopenia Follows with oncology as outpatient Peripheral smear: No evidence of myelodysplasia or other identifying cause [facility] Oncology Dr.Numan Espinal for possible need for filgrastim Monitor CBC daily DVT prophylaxis SCDs Re: Thrombocytopenia CODE STATUS Full Code Disposition PT OT prior to discharge labs checked Await Lung Tap ROS-No Headache, No Visual Changes,+ Nausea, No Vomiting, No Fever, No Chills, No Neck Pain or Stiffness, No Chest Pain, No Palpitations, No SOB, No MONTALVO, No Cough, No Sputum, No Wheezing, No Abdominal Pain, No Diarrhea, No Hematemesis, No Hemoptysis, No Unexpected Weight Loss, No Flank pain, No Melena, No Hemat ochezia, No Frequency, No Urgency, No Burning, No Hematuria, No Rashes, No Diaphoresis. Appetite is Normal Physical Exam Gen-AAO x 3, NAD, Afebrile, weak and tired Head-NCAT, EOMI, PERRLA, Anicteric Sclera, No Posterior Pharyngeal Erythema Neck-Supple, No JVD, No Thyromegaly, No Masses, No LAD, No Bruits Lungs-Clear to Auscultation Bilaterally, No Rales, No Rhonchi, No Wheezing, No Crepitus Chest-No S4, +S1, +S2, No S3, No Murmurs, No Rubs, No Gallops, No Ectopy Abdomen-Soft, Bowel Sounds Present, Non Tender, Non Distended, No Hepatomegaly, No Splenomegaly, No Palpable Masses, No Rebound, No Rigidity, No Guarding Musculoskeletal-Full Range of Motion Bilaterally, No CVAT Extremities-No Cyanosis, No Clubbing, No Edema Nuero-Cranial Nerves II-XII grossly intact, Motor WNL, DTRs WNL, Strength WNL, Non Focal Psych-Normal Mood Admission and Anticipated Discharge Date Admission Date: December 07, 2020 Results & Data Results & Data ([facility]) Vital Signs (Past 12 Hours) Vital Signs Temp Pulse Resp BP BP Pulse Ox 12/18/20 07:58 36.2 C L 78 16 163/94 H 94 12/17/20 23:31 36.4 C L 77 16 123/81 94 (1) Diarrhea Diarrhea type: unspecified type Qualified Code(s): R19.7 - Diarrhea, unspecified (2) Urinary tract infection Hematuria presence: without hematuria Urinary tract infection type: site unspecified Qualified Code(s): N39.0 - Urinary tract infection, site not specified
[2020-12-19] MEDS: ONDANSETRON INJ 2 MG/ML 2 ML VIAL IV PRN ×2 (06:13→16:10)
[2020-12-19 06:14] LABS: Hematocrit (blood only) 39.9 % (42-52); Hemoglobin 13.7 g/dL (14.0-18.0); Mean Corpuscular Hemoglobin 30.6 pg (25-34); Mean Corpuscular Hgb Conc 34.3 g/dL (32-36); Mean Corpuscular Volume 89.3 fL (80-100); RDW Coefficient of Variation 19.1 % (11.5-14.5); Red Blood Count 4.47 M/uL (4.7-6.1); White Blood Count 2.22 K/uL (4.8-10.8)
[2020-12-19 06:17] LABS: Platelet Count 46 K/uL (130-400)
[2020-12-19 06:35] LABS: INR 1.3 (0.9-1.1); Prothrombin Time 12.8 Seconds (9.0-12.0)
[2020-12-19 06:54] LABS: Albumin Level 2.3 gm/dl (3.4-5.0); BUN Creatinine Ratio 31.4 (10-20); Calcium 8.3 mg/dl (8.5-10.1); Est GFR (African American) 94.1; Est GFR (Non-African American) 81.2; Potassium 3.8 mmol/L (3.5-5.1)
[2020-12-19 06:56] LABS: Albumin Globulin Ratio 0.7 (0.9-2); Globulin 3.5 gm/dl (2.5-4.0); Total Protein 5.8 gm/dl (6.4-8.2)
[2020-12-19] MEDS: lisinopril 2.5 MG TAB PO SCH (08:03)
[2020-12-19] MEDS: PSYLLIUM 58.6% POWDER PACKET PO SCH (08:03)
[2020-12-19] MEDS: amLODIPine BESYLATE 5 MG TAB PO SCH (08:03)
[2020-12-19] MEDS: methIMAzole 5 MG TABLET PO SCH (08:03)
[2020-12-19] MEDS: PANTOprazole 40 MG TAB PO SCH (08:03)
[2020-12-19] MEDS: TAMSULOSIN HCL 0.4 MG CAP PO SCH (08:03)
[2020-12-19] MEDS: PROPRANOLOL HCL 10 MG TAB PO SCH ×2 (08:04→15:32)
[2020-12-19] MEDS: THIAMINE HCL 100 MG TAB PO SCH (08:04)
--- NOTE | 2020-12-19 08:41 | Hospitalist Progress Note ---
Date of Service December 19, 2020 Assessment & Plan (1) Diarrhea: Ongoing Nausea, diarrhea DD: Secondary to hyperthyroidism, immunotherapy, HCC --CT ABD:Linear calcification seen within the posterior segment of the right hepatic lobe mild capsular retraction. This favors posttreatment embol ization/changes. There is a 3.5 cm area of heterogeneity within the caudate lobe of the liver posterior to the intrahepatic IVC. This heterogeneous soft tissue appears to extend into the right iván of the diaphragm and is concerning for neoplasm/metastatic disease. A 6.8 cm heterogeneous right adrenal gland mass and an enlarged retrocaval lymph node also consistent with metastatic disease. Suboptimal evaluation for bowel pathology due to the lack of intravenous and oral contrast. However, there is no definite bowel wall thickening or obstruction. Nondilated fluid-filled large and small bowel. This can be seen in the setting of a gastroenteritis/diarrheal illness. Skin thickening and subcutaneous edema within the right lateral abdominal wall. -KUB:Non-obstructed abdominal bowel gas pattern. Stool culture negative Stool for C. difficile negative Appreciate GI input Continue Imodium as needed Patient refusing Questran Received gentle IV fluids Technical Support Technician consulted try Banana flakes Continue thiamine to minimize refeeding syndrome Added Metamucil Full liquid diet, advance as tolerated Continue PPI Continue current management Right Pleural Effusion Likely Malignant effusion CT showed Moderate right pleural effusion Saturating well on room air Appreciate Pulmonology Input Thoracentesis not done yesterday and now platelets are 46 (2) Weakness: Secondary to comorbidities PT OT (3) Urinary tract infection: UTI Ruled out Urine culture negative IV Rocephin discontinued (4) Hepatocellular carcinoma: H/O Hepatocellular carcinoma diagnosed in 2016 status post partial hepatic excision in 2016 and followed by recurrence in February 2019 Was on Nexavar and Opdivo before and now has been on Cabometyx Follows with Oncologist at [facility] Antineoplastic medication held [facility] Oncology Dr.Numan Espinal (5) Hepatitis C: History of hepatitis C (6) Hyperthyroidism: Hyperthyroidism Tachycardia and diarrhea likely secondary to hyperthyroidism TSH of 0.039, free T4 5.71 and free T3 is 8.13 Prior hospitalist discussed with on-call rheumatologist in [place] and suggested to restart methimazole at 2.5 mg daily and monitor CBC and GI consult for diarrhea Repeat TSH: 0.029, Free T4:4.[address]Madiha Downing on 2/1/21: Advised to increase methimazole to 5 mg twice daily Monitor CBC, LFTs daily given HCC Plan to hold methimazole if LFTs 3 times upper limit of normal Propranolol 10 mg 3 times daily Needs follow-up with endocrinology upon discharge (7) Thrombocytopenia: Secondary to hepatic carcinoma/cirrhosis monitor Pancytopenia Antineoplastic chemotherapy induced pancytopenia Follows with oncology as outpatient Peripheral smear: No evidence of myelodysplasia or other identifying cause [facility] Dr[facility]Numan Espinal for possible need for filgrastim Monitor CBC daily DVT prophylaxis SCDs Re: Thrombocytopenia CODE STATUS Full Code Disposition PT OT prior to discharge labs checked Await Lung Tap ROS-No Headache, No Visual Changes,+ Nausea, No Vomiting, No Fever, No Chills, No Neck Pain or Stiffness, No Chest Pain, No Palpitations, No SOB, No MONTALVO, No Cough, No Sputum, No Wheezing, No Abdominal Pain, No Diarrhea, No Hematemesis, No Hemoptysis, No Unexpected Weight Loss, No Flank pain, No Melena, No Hematochezia, No Frequency, No Urgency, No Burning, No Hematuria, No Rashes, No Diaphoresis. Appetite is Normal Physical Exam Gen-AAO x 3, NAD, Afebrile, weak and tired Head-NCAT, EOMI, PERRLA, Anicteric Sclera, No Posterior Pharyngeal Erythema Neck-Supple, No JVD, No Thyromegaly, No Masses, No LAD, No Bruits Lungs-Clear to Auscultation Bilaterally, No Rales, No Rhonchi, No Wheezing, No Crepitus Chest-No S4, +S1, +S2, No S3, No Murmurs, No Rubs, No Gallops, No Ectopy Abdomen-Soft, Bowel Sounds Present, Non Tender, Non Distended, No Hepatomegaly, No Splenomegaly, No Palpable Masses, No Rebound, No Rigidity, No Guarding Musculoskeletal-Full Range of Motion Bilaterally, No CVAT Extremities-No Cyanosis, No Clubbing, No Edema Nuero-Cranial Nerves II-XII grossly intact, Motor WNL, DTRs WNL, Strength WNL, Non Focal Psych-Normal Mood Admission and Anticipated Discharge Date Admission Date: December 07, 2020 Results & Data Results & Data ([facility]) Vital Signs (Past 12 Hours) Vital Signs Temp Pulse Resp BP Pulse Ox 12/19/20 07:22 36.4 C L 79 18 137/79 94 12/18/20 22:56 36.5 C 73 16 124/78 95 (1) Diarrhea Diarrhea type: unspecified type Qualified Code(s): R19.7 - Diarrhea, unspecified (2) Urinary tract infection Hematuria presence: without hematuria Urinary tract infection type: site unspecified Qualified Code(s): N39.0 - Urinary tract infection, site not specified
[2020-12-19] MEDS: PROMETHAZINE HCL 12.5 MG in SODIUM CHLORIDE 0.9% 50 ML IV PRN (09:03)
[2020-12-19] MEDS: CHOLESTYRAMINE LIGHT 4 GM PKT PO SCH (09:51)
--- NOTE | 2020-12-19 10:17 | Pulmonology Progress Note ---
Date of Service December 19, 2020 Assessment & Plan (1) Pleural effusion: Chest x-ray 12/07/2020 personally reviewed: Right-sided pleural effusion, left costophrenic and cardiophrenic angles are clean, CT abdomen pelvis 12/15/2020: Right-sided pleural effusion with associated atelectasis appreciated. No abdominal ascites. --Right-sided pleural effusion Patient had history of pleural effusion in the past which has been tapped with no malignancy Given the history of hepatocellular carcinoma and liver cirrhosis this could still be coming from liver cirrhosis/hepatocellular carcinoma even though patient has no ascites Patient is in no acute distress while laying on the bed flat. He does complain of shortness of breath on exertion --Shortness of breath Multifactorial Right-sided pleural effusion as well as generalized lethargy from malnutrition and cancer playing a role Covid 19 PCR, influenza A/B negative 12/12/2020 Plan: Thoracentesis to be done when the platelets are greater than 50 for 2 consecutive days Pulmonary will continue to follow. Please note the above document was generated using voice recognition software. It may contain grammatical, syntax or spelling errors.Any formal questions or concerns about the content, text or information contained within the body of this dictation should be directly addressed to the provider for clarification. (2) Pancytopenia: Admission and Anticipated Discharge Date Admission Date: December 07, 2020 Subjective Patient seen and examined at bedside. No acute distress, noted with symptoms overnight. Patient states that his nausea is better controlled compared to yesterday. Has mild abdominal pain. His pain medications have been increased in dose. Denies any shortness of breath when laying down. On exertion he does does get short of breath. No cough, no dysuria. Review of Systems Review of Systems: All systems reviewed & are unremarkable except as noted in Subjective Physical Exam Physical Exam: Constitutional: No acute distress, frail-appearing HEENT: EOMI, PERRLA Respiratory system: Decreased air entry on the right side, no wheeze, no rhonchi, no crackles CVS: S1-S2 positive, no murmurs or gallops Abdomen: Soft, nontender, nondistended, positive bowel sounds x4 Extremities: +2 pulses bilaterally radialis/ dorsalis pedis, no cyanosis, no edema Neuro: Awake alert oriented x3 Psych: Normal mood and affect G/U: No [place] Skin: no rashes, warm and dry Lymphatic: no cervical or axillary lymphadenopathy Results & Data Results & Data ([facility]) Vital Signs (Past 12 Hours) Vital Signs Temp Pulse Resp BP Pulse Ox 12/19/20 07:22 36.4 C L 79 18 137/79 94 12/18/20 22:56 36.5 C 73 16 124/78 95 12/19/20 05:55 12/19/20 05:55 PG Care Time/CCT Total # of Minutes Spent Total Time Spent with Patient: Total time spent is greater than 50% in coordination of care (as documented) at patient's floor/unit and/or counseling patient: Coding Level of Care Code 89414 Subseq Hosp Care Lvl 2 Diagnoses Pleural effusion J90 Pancytopenia D61.818
--- NOTE | 2020-12-19 10:26 | Palliative Care Progress Note ---
Date of Service December 19, 2020 Assessment & Plan (1) Palliative care encounter: Nausea and diarrhea in gentleman with hepatocellular carcinoma. Reviewed with RN that haldol is also available for nausea if zofran or phenergan ineffective. Mr. Butterfield has been very clear that he wants to continue full care and has not wanted to discuss goals of care. Palliative care will follow peripherally Admission and Anticipated Discharge Date Admission Date: December 07, 2020 Subjective Resting comfortably after phenergan for nausea. He has been receiving zofran and phenergan daily for nausea. Per RN this seems to be effective. Review of Systems Review of Systems: deferred Physical Exam Constitutional: no acute distress sleeping Respiratory: normal respiratory effort; no labored breathing Results & Data ([facility]) Vital Signs (Past 12 Hours) Vital Signs Temp Pulse Resp BP Pulse Ox 12/19/20 07:22 97.5 F L 79 18 137/79 94 12/18/20 22:56 97.7 F 73 16 124/78 95 PG Care Time/CCT Total # of Minutes Spent Total Time Spent with Patient: Total time spent is greater than 50% in coordination of care (as documented) at patient's floor/unit and/or counseling patient: Coding Level of Care Code 07475 Subseq Hosp Care Lvl 1 Diagnoses Palliative care encounter Z51.5
[2020-12-19] MEDS: oxyCODONE HCL IR 5 MG TAB (IMMEDIATE RELEASE) PO PRN (11:44)
--- NOTE | 2020-12-19 12:37 | Discharge Summary ---
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 Currently, moved to [place] and living with his daughter. He presents with ongoing diarrhea for about 9 days, more than 3 episodes a day. Denies any blood in the stools or black stools. Some nausea, but no vomiting. Appetite is down. Denies any fever, chills. Urine is dark. No blood in the urine. Denies any chest pain, shortness of breath on exertion. Ambulates without any support. Has no headache, no blurred visions, no earache, no runny nose, no sore throat, no loss of sense of smell or taste, no dysphagia. Currently resting comfortably and hemodynamically stable. Admission Exam Per Admitting Provider PHYSICAL EXAMINATION: GENERAL: The patient is of moderate build, not in acute distress. VITAL SIGNS: Temperature 36.8, pulse 88, respiratory rate 15, blood pressure 135/87, oxygen 96% on 2 liters. HEENT: Pupils equal, round, and reactive to light. Oral mucosa moist. NECK: No JVD, no neck masses. CARDIOVASCULAR: S1, S2 heard. Regular rate and rhythm. No murmur, no gallop. RESPIRATORY SYSTEM: Normal AP diameter. No accessory muscle use. No wheezing, no crackles. ABDOMEN: Soft, bowel sounds present, nontender. No distention. CENTRAL NERVOUS SYSTEM: Cranial nerves II-XII grossly intact, nonfocal. EXTREMITIES: No edema, no erythema. Principal Diagnosis Large R Pleural Effusion Diarrhea UTI Generalized Weakness HTN Hx of Hep C/Cirrhosis Hepatocellular CA Hyperthyroidism Remote IVDA Discharge Exam See Below Discharge Data Allergies Allergy/AdvReac Type Severity Reaction Status Date / Time Penicillins Allergy Rash Verified 12/08/20 12:44 Consultations 12/07/20 20:39 ED Decision to Admit Stat 12/08/20 02:02 Consult Case Management - Discharge Planning Routine 12/09/20 08:50 Consult Gastroenterology Routine 12/15/20 14:54 Consult Pulmonology Routine 12/16/20 14:17 Consult Palliative Care Routine Ordered Studies 12/15/20 12:33 CT abd pelvis wo con Routine Current Diagnoses Unspecified viral hepatitis C without hepatic coma (12/07/20) Liver cell carcinoma (12/07/20) Other pancytopenia (12/07/20) Thrombocytopenia, unspecified (12/07/20) Thyrotoxicosis, unspecified without thyrotoxic crisis or storm (12/07/20) Pleural effusion, not elsewhere classified (12/07/20) Urinary tract infection, site not specified (12/07/20) Nausea with vomiting, unspecified (12/07/20) Diarrhea, unspecified (12/07/20) Weakness (12/07/20) Encounter for palliative care (12/07/20) Allergies Penicillins Allergy (Verified 12/08/20 12:44) Rash Height/Weight/Isolation Height 5 ft 10 in Weight 90.4 kg Isolation Type Neutropenic Precautions Chemistry 12/18/20 12/19/20 05:52 05:55 Sodium 138 138 Potassium 3.8 3.8 Chloride 106 108 H Carbon Dioxide 24 25 Anion Gap 7.0 5.0 BUN 30 H 29 H Creatinine 1.00 0.93 Glucose 101 H 97 Hospital Course (1) Diarrhea: Ongoing Nausea, diarrhea DD: Secondary to hyperthyroidism, immunotherapy, HCC --CT ABD:Linear calcification seen within the posterior segment of the right hep atic lobe mild capsular retraction. This favors posttreatment embolization/changes. There is a 3.5 cm area of heterogeneity within the caudate lobe of the liver posterior to the intrahepatic IVC. This heterogeneous soft tissue appears to extend into the right iván of the diaphragm and is concerning for neoplasm/metastatic disease. A 6.8 cm heterogeneous right adrenal gland mass and an enlarged retrocaval lymph node also consistent with metastatic disease. Suboptimal evaluation for bowel pathology due to the lack of intravenous and oral contrast. However, there is no definite bowel wall thickening or obstruction. Nondilated fluid-filled large and small bowel. This can be seen in the setting of a gastroenteritis/diarrheal illness. Skin thickening and subcutaneous edema within the right lateral abdominal wall. -KUB:Non-obstructed abdominal bowel gas pattern. Stool culture negative Stool for C. difficile negative Appreciate GI input Continue Imodium as needed Patient refusing Questran Received gentle IV fluids Printed Circuit Boards Inspector consulted try Banana flakes Continue thiamine to minimize refeeding syndrome Added Metamucil Full liquid diet, advance as tolerated Continue PPI Continue current management Right Pleural Effusion Likely Malignant effusion CT showed Moderate right pleural effusion Saturating well on room air Appreciate Pulmonology Input Thoracentesis not done yesterday and now platelets are 46 Daughter request transfer to [facility], Accepted by Dr Alberto (2) Weakness: Secondary to comorbidities PT OT (3) Urinary tract infection: UTI Ruled out Urine culture negative IV Rocephin discontinued (4) Hepatocellular carcinoma: H/O Hepatocellular carcinoma diagnosed in 2016 status post partial hepatic excision in 2015 and followed by recurrence in February 2019 Was on Nexavar and Opdivo before and now has been on Cabometyx Follows with Oncologist at [facility] Antineoplastic medication held [facility] Oncology Dr.Numan Espinal (5) Hepatitis C: History of hepatitis C (6) Hyperthyroidism: Hyperthyroidism Tachycardia and diarrhea likely secondary to hyperthyroidism TSH of 0.039, free T4 5.71 and free T3 is 8.13 Prior hospitalist discussed with on-call orthotics technician in [place] and suggested to restart methimazole at 2.5 mg daily and monitor CBC and GI consult for diarrhea Repeat TSH: 0.029, Free T4:4.[address]Madiha Downing on 12/15/20: Advised to increase methimazole to 5 mg twice daily Monitor CBC, LFTs daily given HCC Plan to hold methimazole if LFTs 3 times upper limit of normal Propranolol 10 mg 3 times daily Needs follow-up with endocrinology upon discharge (7) Thrombocytopenia: Secondary to hepatic carcinoma/cirrhosis monitor Pancytopenia Antineoplastic chemotherapy induced pancytopenia Follows with oncology as outpatient Peripheral smear: No evidence of myelodysplasia or other identifying cause [facility] Oncology Dr.Numan Espinal for possible need for filgrastim Monitor CBC daily DVT prophylaxis SCDs Re: Thrombocytopenia CODE STATUS Full Code Disposition Transfer to [facility] c Consult to Pulm or IR for Thoracentesis Daughter iAsha Would Like Updates [phone] labs checked Await Lung Tap ROS-No Headache, No Visual Changes,+ Nausea, No Vomiting, No Fever, No Chills, No Neck Pain or Stiffness, No Chest Pain, No Palpitations, No SOB, No MONTALVO, No Cough, No Sputum, No Wheezing, No Abdominal Pain, No Diarrhea, No Hematemesis, No Hemoptysis, No Unexpected Weight Loss, No Flank pain, No Melena, No Hematochezia, No Frequency, No Urgency, No Burning, No Hematuria, No Rashes, No Diaphoresis. Appetite is Normal Physical Exam Gen-AAO x 3, NAD, Afebrile, weak and tired Head-NCAT, EOMI, PERRLA, Anicteric Sclera, No Posterior Pharyngeal Erythema Neck-Supple, No JVD, No Thyromegaly, No Masses, No LAD, No Bruits Lungs-Clear to Auscultation Bilaterally, No Rales, No Rhonchi, No Wheezing, No Crepitus Chest-No S4, +S1, +S2, No S3, No Murmurs, No Rubs, No Gallops, No Ectopy Abdomen-Soft, Bowel Sounds Present, Non Tender, Non Distended, No Hepatomegaly, No Splenomegaly, No Palpable Masses, No Rebound, No Rigidity, No Guarding Musculoskeletal-Full Range of Motion Bilaterally, No CVAT Extremities-No Cyanosis, No Clubbing, No Edema Nuero-Cranial Nerves II-XII grossly intact, Motor WNL, DTRs WNL, Strength WNL, Non Focal Psych-Normal Mood Total Time Total Time Spent Total Time Spent (In Minutes): 45 min Total Time Includes: Examination of the Patient, Discharge Planning, Medication Reconciliation and Communication With Other Providers Discharge Plan Discharge Items Patient Disposition: Transfer Acute Care Hospital Reason For Visit: ILLNESS Discharge Diagnosis: Large R Pleural Effusion Diarrhea UTI Generalized Weakness HTN Hx of Hep C/Cirrhosis Hepatocellular CA Hyperthyroidism Remote IVDA Condition on Discharge: Good Activity: Resume your previous activity Lifting: None Bathing: No limitations Exercise/Sports: Rest today Driving/Machine Use: Resume 3 days after discharge Weightbearing: Full weightbearing Non-emergency contact: Primary Care Provider, Oncologist and Hadoop Engineer Call non-emergency contact if: you have any medication questions Follow-up/Referrals: PCP,NO [Primary Care Provider] - Diet: Regular Addtl Attending Provider Instructions: Need R Lung tapped Pending Studies at Discharge: No Stand-Alone Forms: My [facility] Skilled Items Patient informed of condition?: Yes DNR: No Discharge Level of Care: Other Communicable Disease: No Discharge Prognosis: Stable Lines: Peripheral IV Urinary Catheter: No Medications and DC Order Prescriptions: New famotidine [Acid Transport Technician (famotidine)] 10 mg Tablet 10 mg PO BID PRN (Reason: dyspepsia) Qty: 20 RF: 0 loperamide 2 mg Capsule 2 mg PO Q2H PRN (Reason: loose stool) Qty: 1 RF: 0 thiamine HCl (vitamin B1) [Vitamin B-1] 100 mg Tablet 100 mg PO QAM Qty: 10 RF: 0 propranolol 10 mg Tablet 10 mg PO TID Qty: 10 RF: 0 pantoprazole 40 mg Tablet,Delayed Release (Dr/Ec) 40 mg PO QAM Qty: 10 RF: 0 bismuth subsalicylate [Bismatrol] 262 mg/15 mL Suspension 524 mg PO Q6 PRN (Reason: diarrhea) Qty: 30 RF: 0 methimazole 5 mg Tablet 5 mg PO BID Qty: 7 RF: 0 lisinopril 2.5 mg Tablet 2.5 mg PO QAM Qty: 1 RF: 0 Cholestyramine Light 4 gram Powder In Packet 4 g PO BID@1000,2200 PRN (Reason: diarrhea) Qty: 1 RF: 0 ondansetron HCl (PF) 4 mg/2 mL Solution 4 mg IV Q6H PRN (Reason: nausea and vomiting) Qty: 10 RF: 0 Metamucil (with sugar) 3.4 gram Powder In Packet 1 ea PO QAM Qty: 1 RF: 0 Continued tamsulosin 0.4 mg capsule 0.4 mg PO DIRECTED RF: 0 hydroxyzine HCl 10 mg tablet 10 mg PO DIRECTED RF: 0 diclofenac sodium 1 % gel 1 ea TOPICAL DIRECTED RF: 0 Cabometyx 60 mg tablet 60 mg PO DIRECTED RF: 0 amlodipine 5 mg tablet 5 mg PO DAILY RF: 0 Discontinued ondansetron 8 mg tablet,disintegrating 8 mg PO DIRECTED RF: 0 Discharge Orders: Discharge Order (Routine); Ordered 12/19/20 Ordered By: Julio Cesar Baer Admission Data Admit Date/Time: 12/07/20 23:01 Attending Provider: Julio Cesar Baer Admit Provider: Hilario Kamara Primary Care Provider: PCP,NO Other Providers: Hilario Kamara ; Tu Pak ; Elma Curry ; Tyree Rizzo ; Moira Lua ; Chuckie Restrepo ; Mag Ceja ; Lan Presley ; Blair Chamberlain ; Joaquin Main ; Ping Herring ; Ekta Rider ; Payal Bran ; Li Aponte ; Mima Pollard ; Antonietta Ovalles ; Julianne Banuelos
[2020-12-19] MEDS ORDERED: HYDROmorphone HCL 2 MG TAB PO STA (16:05)
== END 2020-12-19 18:41 | disposition short-term general hospital (02) | DRG 393 ==
LOC: ED 15:49 → 2N 23:01 → SUATTDRO 23:01 → 2N 12-08 00:23 → 3W 12-14 21:18